=== PATIENT | male | born 1990 ===

== ENCOUNTER → 2023-04-23 08:57 | Outpatient (BNVA) | payer OTHER, SELFPAY | PROVIDERS: Visit Provider Physician Assistant Surgical ==

== ENCOUNTER 2023-05-21 15:10 | Outpatient (AMB) | payer OTHER, SELFPAY ==
--- NOTE | 2023-05-21 15:48 | A.OFFVIS_ITS ---
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 BMI 46.8 HPI Details Start time: 3.34pm, End time: 4.19pm ?I spent 40 minutes speaking with the patient on the phone plus an additional 5 minutes reviewing and updating records for a total of 45 minutes HPI Comments History of Present Illness Details Previous weight loss efforts: exercise Wakes up: 6am, Sleeps: 10pm Breakfast: 8am (Bagel, oatmeal) Lunch: skips Dinner: 7pm (burger, pizza) Snacks: 3pm (salami or mozarella with crackers) Exercise: none Fluids: Coffee: 2/week, tea: none, soda: Lesli Regular, juice: Cranberry juice, ETOH:none PFSH Medical History (Updated 05/21/23 @ 15:50 by Tristan Santiago MD) Sleep apnea treated with continuous positive airway pressure (CPAP) Morbid obesity Surgical History (Updated 04/23/23 @ 10:11 by Holly Wesley CMA) History of surgery on left wrist Family History (Updated 04/23/23 @ 09:27 by Holly Wesley CMA) Paternal Grandmother Breast cancer Social History (Updated 04/23/23 @ 09:28 by Holly Wesley CMA) Alcohol intake: never Patient Tobacco Use Status: Never used Tobacco Current occupational status: employed 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 Plan for lap sleeve gastrectomy. If diaphragmatic or ventral hernias are present at time of surgery, these will be repaired laparoscopically as well. Risks and complications were discussed in detail including possible conversion to an open procedure, anastomotic leak, bleeding requiring transfusion, small bowel obstruction, , DVT and pulmonary embolism, cardiac, or pulmonary complications, as assisted complications such as anastomotic ulcer, insufficient weight loss and vitamin deficiencies. I emphasized the importance of close follow-up, adherence to instructions and good communication. 2. Nutritional counseling. Start with 2 CELEBRATE REBUILD protein (buy at [facility] [employer]) shakes (ONE scoop EACH in 8oz low fat unsweetened almond milk each) at 7am-9am and 10am-12pm, 2 protein bars (CELEBRATE protein bars, buy at [facility] [employer]) at 1pm-3pm and 4pm-6pm, dinner at 7pm (12 forks of protein and 12 forks of salad/vegetables). If you feel hungry after your dinner, you can have one more protein bar at 8pm-10pm. So you do 2 protein shakes, 2-3 protein bars and one meal per day. Meal to include lean meat (beef, fish, pork, turkey, chicken), or malagasy yogurt, or egg whites, or beans with a salad with olive oil and fruits (berries, pears, apples, kiwi). Avoid salt, breads, potatoes, rice, pasta, desserts. 3. Each shake would be drunk slowly, like coffee in a period of 2 hours. 4. Cut each bar in 4 pieces and eat each piece in 30min ?to make each bar last 2 hours. 5. I emphasized the importance of measuring accurately the food portion and measure it when serving the food in plate 6. The meal portions include 12 full-size forks of meat and 12 full-size forks of salad. You always eat the meat portion but you can replace up to 6 forks for salad/vegetables with rice, potatoes or pasta, or a fruit ?if you like. The less you do it the better weight loss will be. 7. One full-size fork is what it can be scooped on the fork without falling as neha and not what can be bit with the fork. Use regular forks like those you find in a typical restaurant. 8.? Please send me weight measurements as soon as possible and then once a week. Always include your diet and exercise plan. 9. The best choice would be to purchase a stationary bike, elliptical or treadmill at home that can track calories. Let me know if you do so I can give you an exercise plan. 10.?Goal is to lose at least 1.5-2lbs per week 11. Goal to lose 10% of your weight before surgery, which is about 30lbs. Ultimate weight goal: 273lbs before surgery 12. Please follow the diet plan exactly without any change. If you don't like something about the plan or you feel hungry you need to communicate with me so I can help you revise the plan. You should not change the plan yourself. Orders: Orders H Pylori Breath Test Today E66.01 - Morbid (severe) obesity due to excess calories, G47.30 - Sleep apnea, unspecified Complete Blood Count Auto Diff Today E66.01 - Morbid (severe) obesity due to excess calories, G47.30 - Sleep apnea, unspecified C Reactive Protein Today E66.01 - Morbid (severe) obesity due to excess calories, G47.30 - Sleep apnea, unspecified Vitamin A Today E66.01 - Morbid (severe) obesity due to excess calories, G47.30 - Sleep apnea, unspecified Vitamin D 25-OH Total Today E66.01 - Morbid (severe) obesity due to excess calories, G47.30 - Sleep apnea, unspecified US abdomen comp w elastography Today E66.01 - Morbid (severe) obesity due to excess calories, G47.30 - Sleep apnea, unspecified ECG 12 lead EKG Today E66.01 - Morbid (severe) obesity due to excess calories, G47.30 - Sleep apnea, unspecified Insulin Today E66.01 - Morbid (severe) obesity due to excess calories, G47.30 - Sleep apnea, unspecified Hemoglobin A1c Today E66.01 - Morbid (severe) obesity due to excess calories, G47.30 - Sleep apnea, unspecified Lipid Panel Today E66.01 - Morbid (severe) obesity due to excess calories, G47.30 - Sleep apnea, unspecified IRON PROFILE Today E66.01 - Morbid (severe) obesity due to excess calories, G47.30 - Sleep apnea, unspecified Comprehensive Met. Panel Today E66.01 - Morbid (severe) obesity due to excess calories, G47.30 - Sleep apnea, unspecified Vitamin B12 and Folate Today E66.01 - Morbid (severe) obesity due to excess calories, G47.30 - Sleep apnea, unspecified Zinc Today E66.01 - Morbid (severe) obesity due to excess calories, G47.30 - Sleep apnea, unspecified Vitamin B1 Today E66.01 - Morbid (severe) obesity due to excess calories, G47.30 - Sleep apnea, unspecified TSH reflex Free T4 Today E66.01 - Morbid (severe) obesity due to excess calories, G47.30 - Sleep apnea, unspecified Ferritin Today E66.01 - Morbid (severe) obesity due to excess calories, G47.30 - Sleep apnea, unspecified XR chest 2V Today E66.01 - Morbid (severe) obesity due to excess calories, G47.30 - Sleep apnea, unspecified FL upper GI w air Today E66.01 - Morbid (severe) obesity due to excess calories, G47.30 - Sleep apnea, unspecified Referrals Behavioral Health Referral E66.01 - Morbid (severe) obesity due to excess calories, G47.30 - Sleep apnea, unspecified Nutrition/Dietitian Referral E66.01 - Morbid (severe) obesity due to excess calories, G47.30 - Sleep apnea, unspecified Telehealth Telehealth Location of provider rendering services: practice address Location of patient: address on file Patient Identification confirmed using: Name, : Yes Telehealth method: voice only Patient verbally consented to treatment: Yes Patient verbally consented to billing insurance company: Yes Patient informed of any privacy concerns related to visit: Yes Minutes spent on Phone/Video with Pt.: 45 Coding Level of Care Code Tele [facility] Pt Level 4 (35750) Diagnoses Morbid obesity E66.01 Time Spent (min) 45
[2023-05-21 15:56] VITALS: BMI 46.8
== END 2023-05-21 16:20 | disposition home or self-care (01) ==
LOC: HO.HBS 15:10
PROVIDERS: PCP Internal Medicine; Visit Provider Surgery
DX: E66.01 Morbid (severe) obesity due to excess calories (principal)
CPT/HCPCS: 99204

== ENCOUNTER → 2023-05-21 15:10 | Outpatient (BNVA) | payer OTHER, SELFPAY | PROVIDERS: PCP Internal Medicine; Visit Provider Surgery ==

== ENCOUNTER 2023-05-31 12:15 | Outpatient (REF) | payer OTHER, SELFPAY ==
--- NOTE | ~2023-05-31 | XR_ITS ---
EXAMINATION: XR CHEST CLINICAL INFORMATION: Morbid obesity, severe obesity due to excess calories. Patient states chest pain. COMPARISON: None available. TECHNIQUE: 3 views of the chest. FINDINGS: Lung volumes are low. There is no gross pneumothorax. Heart size is normal. No pleural effusion. 4 mm nodule overlying the posterior aspect of the left ninth rib. CT scan of the chest should be considered for further evaluation. Slight leftward curvature of the thoracolumbar spine. Mild loss of height of several lower thoracic vertebral bodies of indeterminate age and etiology. Mild degenerative changes in the thoracic spine. XR/XR chest 2V IMPRESSION: 1. A 4 mm nodule overlying the posterior aspect of the left ninth rib. CT scan of the chest should be considered for further evaluation. 2. Mild loss of height of several lower thoracic vertebral bodies of indeterminate age and etiology.
[2023-05-31 12:38] LABS: MANUAL DIFF FLAG NO
[2023-05-31 13:09] LABS: Basophils Absolute Auto 0.1 X10*3/uL (0.0-0.2); Basophils Percent Auto 0.6 % (0-2); Eosinophils Absolute Auto 0.2 X10*3/uL (0.0-0.4); Eosinophils Percent Auto 1.9 % (0-4); Hematocrit 43.8 % (42.0-52.0); Hemoglobin 15.9 g/dl (14.0-18.0); Imm Gran Abs Auto 0.03 X10*3/uL (0.00-0.03); Imm Gran Pct Auto 0.4 % (0.0-0.4); Lymphocytes Absolute Auto 2.3 X10*3/uL (1.2-4.9); Lymphocytes Percent Auto 27.7 % (20-40); Mean Corpuscular HGB Conc 36.3 g/dl (31.0-36.0); Mean Corpuscular Hemoglobin 30.1 pg (27.0-33.0); Mean Platelet Volume 10.9 fL (9.4-12.4); Monocytes Absolute Auto 0.5 X10*3/uL (0.1-1.2); Monocytes Percent Auto 5.9 % (2-11); Neutrophils Absolute Auto 5.3 x10*3/uL (2.0-8.3); Neutrophils Percent Auto 63.5 % (45-73); Platelet Count 258 X10*3/uL (160-400); Red Blood Count 5.28 X10*6/uL (4.60-5.80); Red Cell Distribution Width 12.1 % (11.0-16.0); White Blood Count 8.4 X10*3/uL (4.8-10.8)
[2023-05-31 13:46] LABS: Estimated Average Glucose 100 mg/dL; Hemoglobin A1c % 5.1 % (<6.0)
[2023-05-31 13:48] LABS: Alanine Aminotransferase 44 U/L (0-40); Albumin Level 4.5 g/dL (3.5-5.0); Alkaline Phosphatase 64 U/L (39-117); Anion Gap 12 (12-20); Aspartate Amino Transferase 29 U/L (5-37); Bilirubin Total 0.8 mg/dL (0.0-1.0); Blood Urea Nitrogen 13 mg/dL (9-16); Calcium 9.4 mg/dL (8.4-10.2); Carbon Dioxide 24 mmol/L (22-29); Chloride 108 mmol/L (96-108); Cholesterol 167 mg/dL (<200); Estimated Glomerular Filt Rate > 60; Glucose Random 86 mg/dL (60-115); HDL Cholesterol 42 mg/dL (>40); Iron 95 mcg/dL (45-160); LDL Cholesterol Calculated 108 mg/dL (<100); Percent Iron Saturation 39 % (15-50); Potassium 3.7 mmol/L (3.3-5.1); Sodium 140 mmol/L (135-145); Total Iron Binding Capacity 242 mcg/dL (228-428); Total Protein 7.5 g/dL (6.5-8.0); Triglycerides 88 mg/dL (<150); Unsaturated Iron Binding 147 ug/dL
[2023-05-31 14:05] LABS: Ferritin 364 ng/mL (20-250); Insulin 26 uU/mL (2-29); TSH reflex Free T4 1.48 uIU/mL (0.32-4.0); Vitamin D 25-OH Total 12.5 ng/mL (>30)
[2023-05-31 15:39] LABS: Folate 8.3 ng/mL (> or = 4.0); Vitamin B12 463 pg/mL (200-900)
[2023-06-03 01:38] LABS: Zinc 87 mcg/dL (60-130)
[2023-06-03 16:48] LABS: Vitamin A 27 mcg/dL (38-98)
[2023-06-04 17:33] LABS: Vitamin B1 13 nmol/L (8-30)
== END 2023-05-31 12:16 | disposition home or self-care (01) ==
LOC: HO.LAB 12:15
PROVIDERS: Visit Provider Surgery
DX: E66.01 Morbid (severe) obesity due to excess calories (principal); G47.30 Sleep apnea, unspecified
CPT/HCPCS: 36415; 71046; 80053; 80061; 82306; 82607; 82728; 82746; 83036; 83525; 83540; 84425; 84443; 84590; 84630; 85025; 86140

== ENCOUNTER → 2023-06-07 08:21 | Outpatient (REF) | payer OTHER, SELFPAY ==
--- NOTE | 2023-06-07 08:23 | ECG_ITS ---
Test Reason : OBESITY Blood Pressure : / mmHG Vent. Rate : 077 BPM Atrial Rate : 077 BPM P-R Int : 174 ms QRS Dur : 096 ms QT Int : 378 ms P-R-T Axes : 046 039 030 degrees QTc Int : 427 ms Normal sinus rhythm Nonspecific ST and T wave abnormality Abnormal ECG No previous ECGs available Referred By: Tristan Satniago Electronically Signed By:JIMY GAMEZ MD
== END ==
LOC: HO.CARD 08:21
PROVIDERS: Visit Provider Surgery
DX: E66.01 Morbid (severe) obesity due to excess calories (principal); G47.30 Sleep apnea, unspecified
CPT/HCPCS: 93005

== ENCOUNTER → 2023-06-07 08:23 | Outpatient (BNV) | payer OTHER, SELFPAY | PROVIDERS: Visit Provider Internal Medicine Cardiovascular Disease | DX: E66.01 Morbid (severe) obesity due to excess calories (principal); R94.31 Abnormal electrocardiogram [ECG] [EKG] | CPT/HCPCS: 93010 ==

== ENCOUNTER 2023-06-11 08:29 | Outpatient (REF) | payer OTHER, SELFPAY ==
--- NOTE | ~2023-06-11 | US_ITS ---
EXAMINATION: US COMPLETE ABDOMEN WITH LIVER ELASTOGRAPHY CLINICAL INFORMATION: Morbid obesity. COMPARISON: None available. TECHNIQUE: Real-time imaging of the abdominal viscera. Noninvasive ultrasound liver fibrosis assessment is performed using Landry ElastPQ point quantification shear wave elastography (2D-SWE) with a C5-2 MHz transducer. Multiple elastography samples are obtained. FINDINGS: PANCREAS: Normal. The visualized pancreatic head and proximal body are normal in appearance. The remainder of the pancreas is obscured from visualization by the overlying bowel gas. ABDOMINAL AORTA: The proximal, middle, and distal aortic segments are normal in caliber. INFERIOR VENA CAVA: Visualized portions are normal. LIVER: The liver demonstrates normal size, contour and increased echogenicity, with pericholecystic sparing. No focal lesion or intrahepatic biliary duct dilatation. The right lobe measures 16.0 cm in length. The left lobe measures 11.6 cm in length. Portal flow is towards the liver (hepatopetal). Shear wave liver elastography median stiffness is 1.78 m/s (reference: normal median stiffness is 1.3 m/s or less). IQR/median stiffness to assess sampling precision is 0.17 (reference: good quality data set is IQR/median stiffness of 0.15 or less). GALLBLADDER: Normal. The gallbladder is physiologically distended without evidence of stones, sludge, polyps, wall thickening or pericholecystic fluid. COMMON BILE DUCT: Imaging limited. Normal in caliber measuring 0.3 cm in diameter. RIGHT KIDNEY: Normal. No hydronephrosis. No renal calculi or focal parenchymal lesions. The kidney measures 11.0 cm in maximum dimension. LEFT KIDNEY: Normal. No hydronephrosis. No renal calculi or focal parenchymal lesions. The kidney measures 11.7 cm in maximum dimension. SPLEEN: Normal. The spleen measures 11.4 cm in maximum dimension. FREE FLUID: None. US/US abdomen comp w elastography IMPRESSION: 1. There is generalized increase in hepatic echotexture, consistent with fatty infiltration or hepatocellular disease. Please correlate clinically. Characteristic pericholecystic sparing favors fatty infiltration. No focal hepatic mass or intrahepatic biliary dilatation is seen. 2. Liver elastography: Measurements are suggestive of compensated advanced chronic liver disease but need further test for confirmation. 3. Technically limited ultrasound examination, in particular of the pancreas and common bile duct. REFERENCE: Society of Radiologists in Ultrasound Liver Stiffness Thresholds (2020): LIVER STIFFNESS THRESHOLDS: *Liver Stiffness equal or less than 1.3 m/s: High probability of being normal. *Liver Stiffness less than 1.7 m/s: In the absence of other known clinical signs, rules out compensated advanced chronic liver disease. *Liver Stiffness 1.7-2.1 m/s: Suggestive of compensated advanced chronic liver disease but need further test for confirmation. *Liver Stiffness over 2.1 m/s: Rules in compensated advanced chronic liver disease. *Liver Stiffness over 2.4 m/s: Suggestive of clinically significant portal hypertension. QUALITY OF DATA SET: *IQR/Median value equal or less than 0.15 implies a quality data set. *IQR/Median value over 0.15 implies a poor quality data set. SIGNIFICANT CHANGE FROM PRIOR EXAM: Significant change if liver stiffness measurement is 10% or greater from prior exam. OTHER CONSIDERATIONS: The stage of liver fibrosis may be overestimated in the setting of acute hepatitis, liver inflammation, elevated liver function tests, hepatic vascular congestion, obstructive cholestasis, non-fasting state, and infiltrative diseases such as amyloidosis and lymphoma. In some patients with NAFLD, the liver stiffness thresholds for compensated advanced chronic liver disease may be lower. In causes other than viral hepatitis and NAFLD, liver stiffness thresholds are not well established.
== END 2023-06-11 08:30 | disposition home or self-care (01) ==
LOC: HO.US 08:29
PROVIDERS: PCP Internal Medicine; Visit Provider Surgery
DX: E66.01 Morbid (severe) obesity due to excess calories (principal); G47.30 Sleep apnea, unspecified
CPT/HCPCS: 76700; 76981

== ENCOUNTER → 2023-06-16 09:00 | Outpatient (BNVA) | payer OTHER, SELFPAY | PROVIDERS: Visit Provider Counselor Mental Health ==

== ENCOUNTER → 2023-06-16 09:00 | Outpatient (AMB) | payer OTHER, SELFPAY ==
--- NOTE | 2023-06-16 09:10 | A.OFFWM_ITS ---
Intake Intake Visit Reasons: VIDEO BH Intake Allergies No Known Allergies Allergy (Verified 05/21/23 15:48) [facility] Medical History (Updated 06/09/23 @ 15:48 by Tristan Santiago MD) Sleep apnea treated with continuous positive airway pressure (CPAP) Morbid obesity Surgical History (Updated 04/23/23 @ 10:11 by Holly Wesley CMA) History of surgery on left wrist Family History (Updated 04/23/23 @ 09:27 by Holly Wesley CMA) Paternal Grandmother Breast cancer Social History (Updated 04/23/23 @ 09:28 by Holly Wesley CMA) Alcohol intake: never Patient Tobacco Use Status: Never used Tobacco Current occupational status: employed 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 PT denied any history of mental health treatment and or past hospitalization/crisis for behavioral health. Denies any safety concerns around SI and/or self-other harm, also there is no history of substance use reported. There is also no evidence for stress/emotional-eating, and scores from BES suggest minimal risk for binge eating behavior. PHQ- scores also showed no active symptoms/concerns with depression. Mental status exam is withing normal limits, suggesting person's functioning is not impaired. At this time patient is cleared from the behavioral health standpoint. Presenting Concerns Referral Source -PT knew about the program because of he r mother's friend who had a family member who had bariatric surgery. -WMP- provider. PT sees Dr. Hughes Reason for referral Completion of behavioral health assessment as part of process for weight-loss surgery. Precipitating Event Obesity, medical issues such as sleep apnea, and desires to be more active as a father. Living Situation Current Living Situation Relative's/Guardian's Sin and Rent At risk of losing current housing? No Satisfied with current living situation? Yes Comments PT lives at his mother's home. Food/Weight/Diet Expectations of change PT started program at beginning of May and was at 303Lbs. His goal is to be at least 200Lbs but ultimately he wants to be and feel healthy. History/Relationship with food Pt reports he likes food a lot. 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 Lately, He has been able to identify when his cravings due to stress He was also skipping meals and had 1 meal a day only. EXAMPLE OF MEALS BEFORE STARTING THE PROGRAM: - Breakfast: skip - Lunch: fast food around 12 or 1 pm (ta cos, a hot dog, hamburger) - Dinner: in between 8 and 10 pm. Fast f ood (subway, [email or web address], [employer]) - Snacks: any package foods. Due to his job, he was on the road for consecutive days, so he was only eating at home 1 week every 7 weeks. In the past while having his previous job he had little or no appetite in the morning and felt very hungry in the evening, often overeating between dinner and when he went to sleep. History/Relationship with weight As a child, he was always chunky but never obese. He was always very active until he finished HS. After finishing HS he gained weight and was able to lose by going to the gym. On his 20's he was around 175 lbs. 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 Max weight was 305Lbs when started the program. History/Relationship with dieting Has mostly tried exercise and changes in eating choices. Binge Eating Do you frequently eat large amounts of food in short periods of time, not feeling physically hungry? No Do you feel out of control when you eat a large amount of food in a short period of time? No Do you eat large amounts of food rapidly and typically alone? No Night Eating Do you wake up at least once during the night to eat? No If you wake up in the night, do you find that it is necessary to eat something in order to fall back asleep? No Do you have little or no appetite in the morning and feel very hungry in the evening, often overeating between dinner and when you go to bed? Yes Social History Family history and relationship Single. His parents are alive but since he was 3 years old. He has 4 siblings. 2 living in the area and the other 2 in other states. PT reports healthy family relationships. 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 Developmental history and status None reported. Currently WNL. Social support Immediate family, especially mom and grandfather. Is very close to 2 siblings and has 2 good friends. His mom had bariatric surgery 16 years ago and all of his family supports him with bariatric surgery. Community support None reported. Temple/Spirituality None. Cultural/Ethnic information Born and raised in [place]. Living in [place] ago but [place] the [place]. Legal Involvement and History Current or historical involvement with the legal system? None reported. Education Highest grade completed HS and [employer] certificate. Preferred learning style Learn by doing and Visual Currently enrolled in educational program? No Interested in further educational program? No Educational Interests/Skills [employer]. 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 Employment Employment Status Unemployed (2 weeks ago.) Wants help to find employment? No Meaningful activities Family activities, watching Tv, videogames, travel. Financial Situation Describe current financial situation Comfortable Financial assistance? None Service Service? No Mental Health and Addiction Treatment Current/Past substance abuse? No Comments He doesn't drink in general due to the nature of his work. Years ago he was most a social drinker and used to have some drinks on weekends. Current/Past addictive behavior concerns? No Psychiatric history Never in Counseling. Medical and Physical Health Summary Additional Medical History not covered in history None reported Sexual History concerns None reported. Physical exam in the last year? Yes Pain Screening Current pain? No Pain in the last few months? No Comments PT reports he deals with lower back issues as he has a mild case of curved back. When working seated for long periods of time he has some pain but is manageable. Also, at times has some knee pain but is manageable, he feels is due to his weight. Medications Is the patient compliant with medications? Not applicable Does the patient have Munoz Guardian in place? Not applicable Does the patient use complimentary health approaches? No Trauma/Abuse History History of trauma? No Questionnaires PHQ-9 Over the last 2 weeks, how often have you been bothered by any of the following problems? 1. Little interest or pleasure in doing things: not at all 2. Feeling down, depressed, or hopeless: not at all 3. Trouble falling or staying asleep, or sleeping too much: several days 4. Feeling tired or having little energy: not at all 5. Poor appetite or overeating: not at all 6. Feeling bad about yourself - or that you are a failure or have let yourself or your family down: not at all 7. Trouble concentrating on things, such as reading the newspaper or watching television: not at all 8. Moving or speaking so slowly that other people could have noticed. Or the opposite - being so fidgety or restless that you have been moving around a lot more than usual: not at all 9. Thoughts that you would be better off or of hurting yourself in some way: not at all Total score: 1 Depression Screening Interpretation: Negative (PT scored 10 when administered at his admission to [facility] in May. ) Depression Screening Done: Yes 98906 - PHQ-9 Billing: Yes Source: Developed by Drs. Andrew Vasquez, Tina Hurt, Gustavo Handy and colleagues, with an educational jonah from [employer]. Binge Eating Scale Group 1 A. I don't feel self-conscious about my wt. or body size when I'm with others. B. I feel concerned about how I look to others, but it normally does not make me fell disappointed with myself C. I do get self-conscious about my appearance and wt. which makes me feel disappointed in myself. D. I feel very self-conscious about my wt. and frequently I feel intense shame and disgust for myself. I try to avoid social contacts because of my self- consciousness. Response Group 1: C Group 2 A. I don't have any difficulty eating slowly in the proper manner. B. Although I seem to gobble down foods, I don't end up feeling stuffed because of eating to much. C. At times, I tend to eat quickly and then, I feel uncomfortably full afterwards. D. I have the habit of bolting down my food, without really chewing it. When this happens I usually feel uncomfortably stuffed because I've eaten to much. Response Group 2: C Group 3 A. I feel capable to control my eating urges when I want to. B. I feel like I have failed to control my eating more than the average person. C. I feel utterly helpless when it comes to feeling in control of my eating urges. D. Because I feel so helpless about controlling my eating I have become very desperate about trying to get control. Response Group 3: B Group 4 A. I don't have the habit of eating when I'm bored. B. I sometimes eat when I'm bored, but often I'm able to get busy and get my mind off food. C. I have a regular habit of eating when I'm bored, but occasionally, I can use some other activity to get my mind off eating. D. I have a strong habit of eating when I'm bored. Nothing seems to help me breath the habit. Response Group 4: A Group 5 A. I'm usually physically hungry when I eat something. B. Occasionally, I eat something on impulse even though I really am not hungry. C. I have the regular habit of eating foods, that I might not really enjoy, to satisfy a hungry feeling even though physically, I don't need the food. D. Although I'm not physically hungry, I get a hungry feeling in my mouth that only seems to be satisfied when I eat a food, like sandwich, that fills my mouth. Sometimes, when I eat the food to satisfy my mouth hunger, I then spit the food out so I won't gain weight. Response Group 5: A Group 6 A. I don't feel any guilt or self-hate after I overeat. B. After I overeat, occasionally I feel guilt or self-hate. C. Almost all the time I experience strong guilt or self-hate after I overeat. Response Group 6: C Group 7 A. I don't lose total control of my eating when dieting even after periods when I overeat. B. Sometimes when I eat a forbidden food on a diet, I feel like I blew it and eat even more. C. Frequently, I have the habit of saying to myself, I've blown it now, why not go all the way, when I overeat on a diet. When that happens I eat more. D. I have a regular habit of starting a strict diets for myself but I break the diets by going on an eating binge. My life seems to be either a feast or famine. Response Group 7: A Group 8 A. I rarely eat so much food that I feel uncomfortably stuffed afterwards. B. Usually about once a month, I each such a quantity of food, I end up feeling very stuffed. C. I have regular periods during the month when I eat large amounts of food, either at mealtime or at snacks. D. I eat so much food that I regularly feel quite uncomfortable after eating and sometimes a bit nauseous. Response Group 8: A Group 9 A. My level of calorie intake does not go up very high or go down very low on a regular basis. B. Sometimes after I overeat, I will try to reduce my caloric intake to almost nothing to compensate for the excess calories I've eaten. C. I have a regular habit of overeating during the night. It seems that my routine is not to be hungry in the morning but overeat in the evening. D. In my adult years, I have had week-long periods where I practically starve myself. This follows periods when I overeat. It seems I live a life of either feast or famine. Response Group 9: D Group 10 A. I usually am able to stop eating when I want to. I know when enough is enough. B. Every so often, I experience a compulsion to eat which I can't seem to control. C. Frequently, I experience strong urges to eat which I seem unable to control, but at other times I can control my eating urges. D. I feel incapable of controlling urges to eat. I have a fear of not being able to stop eating voluntarily. Response Group 10: A Group 11 A. I don't have any problem stopping eating when I feel full. B. I usually can stop eating when I feel full but occasionally overeat leaving me feeling uncomfortably stuffed. C. I have a problem stopping eating once I start and usually I feel uncomfortably stuffed after I eat a meal. D. Because I have a problem not being able to stop eating when I want, I sometimes have to induce vomiting to relieve my stuffed feeling. Response Group 11: B Group 12 A. I seem to eat just as much when I'm with others, Family social gatherings as when I'm by myself. B. Sometimes, when I'm with other persons, I don't eat as much as I want to eat because I'm self-conscious about my eating. C. Frequently, I eat only a small amount of food when others are present, because I'm very embarrassed about my eating. D. I feel so ashamed about overeating that I pick times to overeat when I know no one will see me. I feel like a closet eater. Response Group 12: A Group 13 A. I eat three meals a day with only an occasional between meal snack. B. I eat 3 meals a day, but I also normally snack between meals. C. When I am snacking heavily, I get in the habit of skipping regular meals. D. There are regular periods when I seem to be continually eating, with no planned meals. Response Group 13: A Group 14 A. I don't think much about trying to control unwanted eating urges. B. At least some of the time, I feel my thoughts are pre-occupied with trying to control my eating urges. C. I feel that frequently I spend much time thinking about how much I ate or about trying not to eat anymore. D. It seems to me that most of my waking hours are pre-occupied by thoughts about eating or not eating. I feel like I'm constantly struggling not to eat. Response Group 14: B Group 15 A. I don't think about food a great deal. B. I have strong craving for food but they last only for brief periods of time. C. I have days when I can't seem to think about anything else but food. D. Most of my days seem to be pre-occupied with thoughts about food. I feel like I live to eat. Response Group 15: A Group 16 A. I usually know whether or not I'm physically hungry. I take the right portion of food to satisfy me. B. Occasionally, I feel uncertain about knowing whether or not I'm physically hungry. A these times it's hard to know how much food I should take to satisfy me. C. Even though I might know how many calories I should eat, I don't have any idea what is a normal amount of food for me. Response Group 16: A Binge Eating Score: 12 Score less than 17 Minimal Risk Score between 18-26 Moderate Risk Score between 27-46 High Risk Assessment & Plan Assessment & Plan (1) Morbid obesity: Code(s): E66.01 - Morbid (severe) obesity due to excess calories (2) Adjustment disorder, unspecified: Code(s): F43.20 - Adjustment disorder, unspecified Plan * The patient has been cleared from a behavioral health standpoint and appears to be a great candidate for?weight?management program (WMP).? * During our discussion, the patient shared their doubts about moving forward with bariatric surgery. The therapist advised the patient to share their medical questions and concerns with Dr. Hughes * ?The patient will need to complete his nutrition classes before the next appointment with Dr. Hughes? * There is no need for further follow-up for behavioral health, but a follow-up appointment 4-8 weeks post-surgery is recommended. Telehealth Telehealth Telehealth Platform: [facility] Location of provider rendering services: other Location of patient: address on file Patient Identification confirmed using: Name, : Yes Telehealth method: voice only Patient verbally consented to treatment: Yes Patient verbally consented to billing insurance company: Yes Patient informed of any privacy concerns related to visit: No Minutes spent on Phone/Video with Pt.: 90 Coding Level of Care Code New Pt Tele Psy Diag Eval (85565) Patient Type New Diagnoses Morbid obesity E66.01 Adjustment disorder, unspecified F43.20 Time Spent (min) 90
== END ==
PROVIDERS: Visit Provider Counselor Mental Health
DX: E66.01 Morbid (severe) obesity due to excess calories (principal); F43.20 Adjustment disorder, unspecified
CPT/HCPCS: 90791

== ENCOUNTER → 2023-06-18 07:55 | Outpatient (REF) | payer OTHER, SELFPAY ==
--- NOTE | 2023-06-18 07:57 | CA_ITS ---
Acquisition Time: 2023-06-18 08:05:47 Total Exercise Time: 00:08:59 Test Indications: Abnormal ECG Medications: NONE Protocol: JAY Max HR: 166 BPM 88% of Pred: 187 BPM Max BP: 170/030 mmHG Max Work Load: 10.1 METS Exercise stress test exercose 8 min 59 sec of Jay protocol achieivng 87% MPHR and 10.1 METS, without anginal symptoms, without arrhythmias, with normotensive with lowest diastolic blood pressure 30 mmHg, with T wave inversion in lead V6 reviewed with Dr. Katz. Referred By: Tristan Santiago Overread By: Nidia Pak
== END ==
LOC: HO.CARD 07:55
PROVIDERS: Visit Provider Surgery
DX: R94.31 Abnormal electrocardiogram [ECG] [EKG] (principal)
CPT/HCPCS: 93017

== ENCOUNTER → 2023-06-18 07:57 | Outpatient (BNV) | payer OTHER, SELFPAY | PROVIDERS: Visit Provider Nurse Practitioner | DX: R94.31 Abnormal electrocardiogram [ECG] [EKG] (principal) | CPT/HCPCS: 93016; 93018 ==

== ENCOUNTER 2023-06-23 07:57 | Day surgery (SDC) | payer OTHER, SELFPAY ==
[2023-06-21 14:25] VITALS: BMI 46.6
--- NOTE | 2023-06-21 14:46 | HO.ANESPROP2 ---
Documented by User: Thea Cox NP 06/21/23 14:47 HPI - Anesthesia Eval Consult details Narrative: 33yo M for Upper Endoscopy PMFSH Active Problems Active Problems: All Active Problems Nodule of left lung (Acute) Abnormal EKG (Acute) Vitamin A deficiency (Acute) Vitamin B12 deficiency (Acute) Vitamin D deficiency (Acute) Sleep apnea treated with continuous positive airway pressure (CPAP) (Acute) Morbid obesity (Acute) Past Medical History Medical History Sleep apnea treated with continuous positive airway pressure (CPAP) Morbid obesity Family History Family History Paternal Grandmother Breast cancer Surgical History Surgical History History of surgery on left wrist Social History Social History Alcohol intake: never Patient Tobacco Use Status: Never used Tobacco Advance Directives: No (unknown) Advance Directives Information Provided: Yes Advance Directives on File: No Current occupational status: employed 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 [employer] Allergies Allergy/AdvReac Type Severity Reaction Status Date / Time No Known Allergies Allergy Verified 06/23/23 08:35 Exam Height,Weight and Vital Signs: Height 5 ft 7.5 in Weight 136.985 kg Assessment and Plan Assessment Anesthesia Assessment: Chart Reviewed Documented by User: Subha Hunter MD 06/23/23 09:00 PMFSH Past Medical History Medical History Sleep apnea treated with continuous positive airway pressure (CPAP) Morbid obesity Family History Family History Paternal Grandmother Breast cancer Surgical History Surgical History History of surgery on left wrist History of Problems with Anesthesia: No Social History Social History Alcohol intake: never Patient Tobacco Use Status: Never used Tobacco Advance Directives: No (unknown) Advance Directives Information Provided: Yes Advance Directives on File: No Current occupational status: employed 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 Meds Allergies Allergy/AdvReac Type Severity Reaction Status Date / Time No Known Allergies Allergy Verified 06/23/23 08:35 Exam Airway Mallampati Class: III TM Dist: >3cm Neck ROM: Full Loose/Missing/Broken Teeth: No Heart: RRR Lungs: CTA Assessment and Plan Assessment Anesthesia Assessment: Anesthesia Plan Discussed Final Anesthetic Review History of Problems with Anesthesia: No NPO: Yes ASA Class: III Final Preanesthetic Review: Meds/Allgs Chart Reviewed, Consent Obtained/Reviewed and Anes Risks/Benef Reviewed Patient Risk: Intermediate Procedure Risk: Intermediate Anesthetic Plan Anesthetic Plan: MAC: Disposition: Standard PACU
[2023-06-23 08:42] VITALS: BP 126/75; PULSE 78; RESP 16; TEMP 36.3; O2SAT 97
[2023-06-23] MEDS: Lactated Ringers 1,000 ML 80 ML IVCONT (08:47)
--- NOTE | 2023-06-23 08:48 | MHC.SHP ---
Pre-Procedural Eval Section A - 24 Hr Update-Section A only Date of Service: 06/23/23 The patient is an INPATIENT: No The patient has been examined within 24 hours of the surgical procedure. The History & Physical has been completed within 30 days and I have reviewed it.: Yes Section B - Complete if H&P > 30 days Chief Complaint: Obesity, unspecified Details of Present Illness: GERD Relevant Family History (Specify if Yes): No Relevant Social History: None Present Medications: None Medical History: No relevant PMH History of Previous Operations: No relevant previous surgery Allergies: Allergies Allergy/AdvReac Type Severity Reaction Status Date / Time No Known Allergies Allergy Verified 06/23/23 08:35 Review of Systems Sugical H&P ROS: Negative: Constitution, Cardiovascular, Respiratory, Neurological, Psychiatric, Hem-Onc, Allergic/Immunologic, Gastrointestinal, Genitourinary, Musculoskeletal, Integumentary, Endocrine and Eyes/Ears/Nose/Throat Exam Surgical H&P Exam: Normal: HEENT, Normal: Heart, Normal: Lungs, Normal: Extremities, Normal: Abdomen, Normal: Skin and Normal: Neurological Plan Diagnosis/Plan: Unchanged (EGD to assess etiology of GERD. Risks of bleeding and perforation were discussed with the patient and he is in agreement with the plan.) I have reviewed the history and physical and performed a pertinent physical examination on my patient. No changes have occurred unless specified. Time Spent With Patient Time: Total time managing care of this patient today ____ minutes.
--- NOTE | 2023-06-23 08:55 | P.BOP_ITS ---
Brief Operative Note Date of Service: 06/23/23 Pre-op diagnosis: GERD Post-op diagnosis: same Procedure: PROCEDURE DATE: 05/22/2021 PREOPERATIVE DIAGNOSIS: GERD POSTOPERATIVE DIAGNOSIS: ?Same as above. 1) normal endoscopy PROCEDURE: [id number] with biopsies Surgeon: Tino Santiago M.D.. Ph.D. Curriculum And Instruction Director: None ? Anesthesia: IV sedation Estimated blood loss: ?Minimal FINDINGS AND PROCEDURE: ? OPERATIVE INDICATIONS: ?The patient is a 33 year old male known to me who is interested in bariatric surgery. The patient has GERD. Based on this information I recommended an upper endoscopy to evaluate the patient's symptoms. Risks and complications of the surgery were discussed with the patient in advance particularly the possibility of perforation or bleeding that may require surgical intervention. The patient understood the risks and was in agreement with the plan. ? PROCEDURE: After informed consent was obtained by the patient, the patient was ?transferred to the Operating Room and was placed in the supine position.? After successful induction of IV sedation, a mouth block was inserted and the patient was placed in the left lateral decubitus position. An upper endoscopy was performed next, the oropharynx and esophagus appeared within the normal limits. There was no hiatal hernia. The z-line was smooth. Two biopsies were obtained from the distal esophagus 2-3 cm proximal to the GE junction and two additional biopsies from the GE junction. The stomach was entered and it appeared to be of normal size. There was no gastritis. There was no stricture or ulcer. A biopsy was obtained from the gastric fundus and antrum. No significant bleeding was noted from any of the biopsy sites. Retroflexion of the scope revealed a normal GE junction. The scope was then advanced into the duodenum which appeared to be normal as well. At that point the duodenum ?and the stomach were decompressed and the scope was withdrawn from the patient's mouth. The patient extubated and was transferred in stable condition to the Recovery Room for further care. I was present and performed all steps of the procedure. There were no residents to assist with this case. Torsten Santiago M.D., Ph.D. Surgeon: Tristan Santiago MD Anesthesia: MAC Was an Curriculum And Instruction Director used for this Procedure?: No Estimated blood loss (mL): 0 IV fluids (mL): 400 Urine output (mL): 0 (No zapata to record output) Pathology: other (1) antrum x1, 2) fundus x1, 3) GE junction x2, 4) distal esophagus x2) Condition: stable Disposition: PACU
[2023-06-23 09:48] VITALS: BP 103/61; PULSE 73; RESP 16; TEMP 36.6; O2SAT 98
[2023-06-23 10:08] VITALS: BP 123/86; PULSE 73; RESP 18; TEMP 36.7; O2SAT 97
== END 2023-06-23 10:58 | disposition home or self-care (01) ==
PROVIDERS: Visit Provider Surgery
PROC: 0DJ08ZZ Inspection of Upper Intestinal Tract, Via Natural or Artificial Opening Endoscopic (ICD-10-PCS; CPT 43235; principal; 2023-06-23 09:30)
DX: K21.9 Gastro-esophageal reflux disease without esophagitis (principal); E66.01 Morbid (severe) obesity due to excess calories; Z68.42 Body mass index [BMI] 45.0-49.9, adult; G47.30 Sleep apnea, unspecified; Z99.89 Dependence on other enabling machines and devices
CPT/HCPCS: 43239; 88305; 88313; 88342; J1596; J2250; J2704

== ENCOUNTER → 2023-06-23 07:57 | Outpatient (BNV) | payer OTHER, SELFPAY | PROVIDERS: Visit Provider Surgery | DX: E66.01 Morbid (severe) obesity due to excess calories (principal); Z68.42 Body mass index [BMI] 45.0-49.9, adult; K21.9 Gastro-esophageal reflux disease without esophagitis | CPT/HCPCS: 43239 ==

== ENCOUNTER 2023-07-02 09:28 | Outpatient (AMB) | payer OTHER, SELFPAY ==
--- NOTE | 2023-07-02 11:44 | MHC.OFFVISWM ---
VS Expanded 07/02/23 11:51 Height 5 ft 7.5 in Weight 288 lb 2 oz BMI 44.5 Body Fat % 47.7 Body Fat Mass 137.4 Fat Free Mass 150.8 Visceral Fat Rating 25 Body Water % 37.8 Body Water Mass 108.9 Basal Metabolic Rate/Score 1,838 Intake Visit Reasons: TV Follow Up SWL - 1ST Allergies No Known Allergies Allergy (Verified 06/23/23 08:35) HPI HPI TV Follow Up SWL - 1ST: Details: Start time: 11.38am, End time: 11.58am ?I spent 15 minutes speaking with the patient on the phone plus an additional 5 minutes reviewing and updating records for a total of 20 minutes HPI Comments Details: Overall weight loss: 15.2 lbs, or 5.01% TBWL Is doing 2 CELEBRATE REBUILD protein shakes (ONE scoop EACH in 8oz low fat unsweetened almond milk each) at 7am-9am and 10am-12pm, 2 protein bars (CELEBRATE) at 1pm-3pm and 4pm-6pm, dinner at 7pm (12 forks of protein and 12 forks of salad/vegetables). 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 Excellent progress! Continue same nutritional plan of 2 CELEBRATE REBUILD protein shakes (ONE scoop EACH in 8oz low fat unsweetened almond milk each) at 7am-9am and 10am-12pm, 2 protein bars (CELEBRATE) at 1pm-3pm and 4pm-6pm, dinner at 7pm (12 forks of protein and 12 forks of salad/vegetables). 2. Exercise: continue treadmill for 6 days per week for 400 calories 3. Continue to send me weight measurements weekly on Wednesdays
[2023-07-02 11:51] VITALS: BMI 44.5
== END 2023-07-02 11:58 | disposition home or self-care (01) ==
LOC: HO.HBS 09:28
PROVIDERS: Visit Provider Surgery
DX: E66.01 Morbid (severe) obesity due to excess calories (principal)
CPT/HCPCS: 99213

== ENCOUNTER → 2023-07-02 09:28 | Outpatient (BNVA) | payer OTHER, SELFPAY | PROVIDERS: Visit Provider Surgery ==

== ENCOUNTER 2023-07-21 09:05 | Outpatient (REF) | payer OTHER, SELFPAY ==
--- NOTE | ~2023-07-21 | FL_ITS ---
EXAMINATION: XR FLUOROSCOPY UPPER GI WITH AIR CLINICAL INFORMATION: Preop evaluation prior to bariatric surgery COMPARISON: None TECHNIQUE: Fluoroscopic air contrast upper GI examination was performed utilizing standard techniques with thin and thick barium and effervescent granules. Numerous spot images were obtained. FINDINGS: Dual and single contrast images of the esophagus demonstrate normal caliber, contour, and mucosal pattern. No evidence of stricture, mass, or ulcerations identified. Esophageal peristalsis was normal. A very small type I hiatal hernia is present. Gastroesophageal reflux is seen up to the aortic arch. Dual contrast and single contrast images of the stomach demonstrated normal contour and mucosal pattern without evidence of mass, ulceration, or other abnormality. Contrast freely passed into the gastric antrum and duodenal bulb without delay. Single and air-contrast images of the duodenal bulb demonstrate no abnormality. The duodenal sweep has a normal appearance, course, and mucosal fold appearance. The imaged proximal jejunum has a normal fold pattern and caliber. FLUOROSCOPY TIME: 2 minutes 41 second Number of Spot Images: 10 Number of Cine: 11 DOSE AREA PRODUCT: 2483 uGy-m2 (microgray-meter squared) FL/FL upper GI w air IMPRESSION: 1. Very small type I hiatal hernia. 2. Moderate gastroesophageal reflux. This procedure was performed by Jamison Galarza PA-C, and supervised by Dr. Pak
== END 2023-07-21 09:06 | disposition home or self-care (01) ==
LOC: HO.XRAY 09:05
PROVIDERS: Visit Provider Surgery
DX: E66.01 Morbid (severe) obesity due to excess calories (principal)
CPT/HCPCS: 74246

== ENCOUNTER → 2023-07-21 09:11 | Outpatient (BNV) | payer OTHER, SELFPAY | PROVIDERS: Visit Provider Physician Assistant Surgical | DX: E66.01 Morbid (severe) obesity due to excess calories (principal); Z01.818 Encounter for other preprocedural examination | CPT/HCPCS: 74246 ==

== ENCOUNTER → 2023-07-29 10:52 | Outpatient (REF) | payer OTHER, SELFPAY ==
--- NOTE | 2023-07-29 10:54 | CA_ITS ---
Acquisition Time: 2023-07-29 10:57:34 Total Exercise Time: 00:10:21 Test Indications: Abnormal ECG Medications: SEE EMAR Protocol: JAY Max HR: 176 BPM 94% of Pred: 187 BPM Max BP: 142/064 mmHG Max Work Load: 12.1 METS Exercise stress test exercise 10 min 21 sec of Jay protocol achieving 94% MPHR, without anginal symptoms, without arrhythmias, with normotensive response to exercise, without EKG changes. Echo images obtained by tech at rest and immediately post peak exercise. Definity contrast used. Test reviewed with Dr. Katz. Referred By: Rodriguez Dodd Overread By: Nidia Pak
== END ==
LOC: HO.CARD 10:52
PROVIDERS: Visit Provider Physician Assistant Surgical
DX: R94.31 Abnormal electrocardiogram [ECG] [EKG] (principal)
CPT/HCPCS: 93350; Q9957

== ENCOUNTER → 2023-07-29 10:54 | Outpatient (BNV) | payer OTHER, SELFPAY | PROVIDERS: Visit Provider Nurse Practitioner | DX: R94.31 Abnormal electrocardiogram [ECG] [EKG] (principal) | CPT/HCPCS: 93016; 93018; 93350; 93352 ==

== ENCOUNTER 2023-08-06 07:48 | Outpatient (REF) | payer OTHER, SELFPAY ==
--- NOTE | ~2023-08-06 | CT_ITS ---
EXAMINATION: CT CHEST WITH CONTRAST CLINICAL INFORMATION: Solitary pulmonary nodule. COMPARISON: Abdominal ultrasound dated 06/11/2023; chest radiographs dated 05/31/2023. TECHNIQUE: Multidetector volumetric CT imaging of the chest was obtained after the administration of 65 mL of Omnipaque 350 intravenous contrast without immediate adverse reactions. Axial MIP volume rendering provided. Sagittal and coronal reformatted images were obtained. This CT examination was performed using dose optimization techniques as appropriate, variously including the following: *Automated exposure control *Adjustment of mA and/or kV according to patient size (this includes techniques or standardized protocols for targeted exams where dose is matched to indication/reason for exam; i.e. 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 LUNGS: There are several bilateral benign, calcified granulomas. Within the lateral basal segment of the left lower lobe, a 1 mm noncalcified nodule is seen (7:147). There is no mass, infiltrate or groundglass opacity. No generalized increase is seen in peripheral interlobular septal markings. No bleb or bullous formation is seen. There is no small airway thickening. There is no bronchiectasis. The central airways appear patent. MEDIASTINUM: The mediastinum is normal. PLEURA: There is no pleural effusion. No pleural mass or thickening. AXILLA: No lymphadenopathy. There is very mild gynecomastia, left greater than right. UPPER ABDOMEN: There is mild hepatic steatosis. The adrenal glands are unremarkable. OSSEOUS STRUCTURES: There are very mild T8-T10 anterior wedge compression fractures. These appear stable from the chest radiograph dated 05/29/2023. No acute or aggressive osseous finding is noted. CT/CT chest w IV con IMPRESSION: 1. There are numerous bilateral benign, calcified granulomas, one of which at the lateral left base corresponds with the radiographic finding of 05/31/2023. There is a 1 mm noncalcified nodule at the lateral left base, of doubtful clinical significance. According to the UPDATED 2017 Fleischner Society recommendations, the advised follow-up imaging for solid nodules < 6 mm is: LOW RISK PATIENT: No routine follow-up. HIGH RISK PATIENT: Optional CT at 12 months. 2. No mass, infiltrate or groundglass opacity is seen. 3. There is no thoracic lymphadenopathy or pleural effusion. 4. There are stable very mild T8-T10 anterior wedge compression fractures. 5. There is mild hepatic steatosis. Fleischner guidelines were followed.
[2023-08-06] MEDS: iohexoL 350 MG/ML 100 ML INFUS..BTL IV (08:29)
== END 2023-08-06 07:49 | disposition home or self-care (01) ==
LOC: HO.CT 07:48
PROVIDERS: Visit Provider Surgery
DX: R91.1 Solitary pulmonary nodule (principal)
CPT/HCPCS: 71260; Q9967

== ENCOUNTER 2023-08-16 08:14 | Outpatient (AMB) | payer OTHER, SELFPAY ==
--- NOTE | 2023-08-16 15:26 | A.OFFVIS_ITS ---
VS Expanded 08/16/23 19:21 Height 5 ft 7.5 in Weight 271 lb 4 oz BMI 41.9 Body Fat % 43.8 Body Fat Mass 118.8 Fat Free Mass 152.6 Visceral Fat Rating 23 Body Water % 40.6 Body Water Mass 110.1 Basal Metabolic Rate/Score 1,855 Intake Visit Reasons: TV Pre Op LSG 08/25/23 Allergies No Known Allergies Allergy (Verified 08/16/23 15:27) Medication List - Last Reconciled 08/16/23 by Tristan Santiago MD cholecalciferol (vitamin D3) 125 mcg PO DAILY cyanocobalamin (vitamin B-12) 500 mcg (2 x 250 mcg) PO DAILY ondansetron 4 mg PO Q12H pantoprazole 40 mg PO DAILY pantoprazole 40 mg PO DAILY polyethylene glycol 3350 17 grams PO DAILY sucralfate 10 mL PO BID vitamin A palmitate 10,000 units PO DAILY HPI HPI TV Pre Op LSG 08/25/23: Details: Start time: 3pm, End time: 3.30pm ?I spent 25 minutes speaking with the patient on the phone plus an additional 5 minutes reviewing and updating records for a total of 30 minutes HPI Comments Details: Overall weight loss: 32 lbs, or 10.55% TBWL Wakes up: 3pm, sleeps: 5am Is doing 2 CELEBRATE REBUILD protein shakes (ONE scoop EACH in 8oz low fat unsweetened almond milk each) at 7am-9am and 10am-12pm, 2 protein bars (CELEBRATE) at 1pm-3pm and 4pm-6pm, dinner at 7pm (12 forks of protein and 12 forks of salad/vegetables). Exercise: is doing treadmill for 6 days per week for 400 calories [facility] Medical History (Updated 08/16/23 @ 11:09 by Renate Bullard RN) Fatty liver Sleep apnea treated with continuous positive airway pressure (CPAP) Morbid obesity Surgical History (Updated 08/12/23 @ 15:31 by Renate Bullard RN) History of esophagogastroduodenoscopy (EGD) History of surgery on left wrist Family History Paternal Grandmother Breast cancer Social History Are you a primary wound care rn to a significant other at home: No Do you presently have visiting nurse or other home services: No Alcohol intake: never Patient Tobacco Use Status: Never used Tobacco Current occupational status: employed 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 Plan for lap sleeve gastrectomy including upper GI endoscopy. All tests has been completed and reviewed and the patient is cleared for the surgery. ?If diaphragmatic or ventral hernias are present at time of surgery, these will be repaired laparoscopically as well. Risks and complications were discussed in detail including possible conversion to an open procedure, anastomotic leak, bleeding requiring transfusion, small bowel obstruction, , DVT and pulmonary embolism, cardiac, or pulmonary complications, as long filler cigar roller machine complications such as anastomotic ulcer, insufficient weight loss and vitamin deficiencies. I emphasized the importance of close follow-up, adherence to instructions and good communication. So far he has proven to be an excellent communicator and very compliant with all our directions accomplishing a great weight loss. I believe that he is an excellent candidate and he is ready. 2. Preop prescriptions were provided and explained the purpose of each one. Need to be purchased preop. Start Pantoprazole now as you get it from the pharmacy, 1 pill per day. Sucralfate and Zofran are for after surgery as needed. 3. Bowel prep: please do 7 packets ?of Miralax mixing each one with a an 8oz glass of water, crystal light, gatorade zero, or propel ?on 08/23/23 and the same amount on 08/24/23. The Miralax you begin with one packet at a time in 8oz water or crystal light, gatorade zero, or propel ?as early in the day as you can and you do them back to back until you finish them. Continue the protein shakes during ?the bowel prep. 4. Needs to purchase 1oz medicine cups . 5. Needs to purchase Children's liquid Tylenol for postop pain control. 6. Avoid aspirin, motrin, Advil, Aleve, Ibuprofen, Naproxyn. Tylenol is OK. 7. He needs to purchase the Celebrate 4:1 protein shakes from the hospital's gift shop. 8. Will do basic preop blood work-up any day between Wednesday08/16/23 and Wednesday08/20/23 fasting for 12 hours and is scheduled to see the Anesthesiologist prior to the day of surgery. 9. Importance of adherence to postop folllow-up and recommendations was underscored and he understands that. 10. Stop food and bars as of tomorrow 08/17/23 and continue with 5 Celebrate Rebuild protein shakes (TWO scoops in 8oz almond milk) at 4pm-6pm, 7pm-9pm, 10pm-12am, 1am-3am and 3am-5am. 11. No soups, broths or V8 12. The patient's?medical?history has been reviewed and they are considered low risk for post op DVT and therefore DVT prophylaxis is not considered necessary. Travel after surgery was reviewed. The patient has not disclosed any travel plans during the first 30 days after surgery and they have been advised that within the first 30 days after surgery any bus, plane, train or car travel over 2 hours in duration is contraindicated due to the possibility of developing blood clots from immobility. Any travel, needs to include periods of ambulation of 10 minutes in duration every 2 hours.? Patient was instructed to discuss any plans for travel during this period with their bariatric surgeon.? 13. Use your CPAP daily and bring it to the hospital with your mask 14. Please take at the day of surgery the following medications: NONE 15. Absolutely no smoking or vaping, or marijuana until the surgery and for at least the first 4 weeks. Only nicotine patches are allowed. 16. Send me weight measurements on Wednesday08/18/23 and then on Wednesday08/25/23, the day of surgery before you go to the hospital. 17. Avoid any steroids by mouth for any reason. Let me know if someone prescribes them to you 18. These instructions supersede anything else you read in the handbook, anything you watched in videos or classes or you were told by any other provider. If there is any conflict, you follow the above instructions and nothing else. Orders: Orders Insulin Today E66.01 - Morbid (severe) obesity due to excess calories Medications: New sucralfate 10 mL PO BID 600 mL 2RF K21.9 - Gastro-esophageal reflux disease without esophagitis ondansetron Only take one every 12 hours as needed if you have nausea 4 mg PO Q12H 20 tabs 0RF nausea and vomiting R11.0 - Nausea pantoprazole 40 mg PO DAILY 90 tabs 0RF K21.9 - Gastro-esophageal reflux disease without esophagitis polyethylene glycol 3350 Mix each measuring cup with 8oz of water, Crystal light, or Gatorade zero, or Propel and do 7 measuring cups on 08/23/23 and another 7 measuring cups on 08/24/23 17 grams PO DAILY 238 grams 0RF Z01.818 - Encounter for other preprocedural examination
[2023-08-16 19:21] VITALS: BMI 41.9
== END 2023-08-16 19:35 | disposition home or self-care (01) ==
LOC: HO.HBS 08:14
PROVIDERS: Visit Provider Surgery
DX: E66.01 Morbid (severe) obesity due to excess calories (principal)
CPT/HCPCS: 99214

== ENCOUNTER → 2023-08-16 08:14 | Outpatient (BNVA) | payer OTHER, SELFPAY | PROVIDERS: Visit Provider Surgery ==

== ENCOUNTER 2023-08-25 05:49 | Inpatient (IN) | payer OTHER, SELFPAY ==
[2023-08-16 09:17] LABS: MANUAL DIFF FLAG NO
[2023-08-16 09:34] LABS: Basophils Percent Auto 0.8 % (0-2); Eosinophils Absolute Auto 0.2 X10*3/uL (0.0-0.4); Hematocrit 42.2 % (42.0-52.0); Hemoglobin 14.8 g/dl (14.0-18.0); Imm Gran Abs Auto 0.01 X10*3/uL (0.00-0.03); Imm Gran Pct Auto 0.2 % (0.0-0.4); Lymphocytes Absolute Auto 2.1 X10*3/uL (1.2-4.9); Lymphocytes Percent Auto 38.9 % (20-40); Mean Corpuscular HGB Conc 35.1 g/dl (31.0-36.0); Mean Corpuscular Volume 85.4 fL (80.0-98.0); Mean Platelet Volume 11.3 fL (9.4-12.4); Monocytes Absolute Auto 0.4 X10*3/uL (0.1-1.2); Monocytes Percent Auto 6.8 % (2-11); Neutrophils Absolute Auto 2.7 x10*3/uL (2.0-8.3); Neutrophils Percent Auto 50.3 % (45-73); Platelet Count 205 X10*3/uL (160-400); Red Blood Count 4.94 X10*6/uL (4.60-5.80); Red Cell Distribution Width 11.9 % (11.0-16.0); White Blood Count 5.3 X10*3/uL (4.8-10.8)
[2023-08-16 09:47] LABS: INTERNATIONAL NORM RATIO 1.1 (0.9-1.1); Prothrombin Time 13.8 SEC (11.1-13.3)
[2023-08-16 09:50] LABS: Partial Thromboplastin Time 35.8 SEC (26.0-36.8)
[2023-08-16 10:19] LABS: Alanine Aminotransferase 30 U/L (0-40); Albumin Level 4.1 g/dL (3.5-5.0); Alkaline Phosphatase 65 U/L (39-117); Anion Gap 11 (12-20); Aspartate Amino Transferase 24 U/L (5-37); Bilirubin Total 0.8 mg/dL (0.0-1.0); Blood Urea Nitrogen 9 mg/dL (9-16); C Reactive Protein < 0.10 mg/dL (< or = 0.50); Calcium 9.1 mg/dL (8.4-10.2); Carbon Dioxide 25 mmol/L (22-29); Chloride 110 mmol/L (96-108); Cholesterol 158 mg/dL (<200); Estimated Glomerular Filt Rate > 60; Glucose Random 88 mg/dL (60-115); HDL Cholesterol 39 mg/dL (>40); Iron 132 mcg/dL (45-160); LDL Cholesterol Calculated 100 mg/dL (<100); Percent Iron Saturation 55 % (15-50); Potassium 3.9 mmol/L (3.3-5.1); Sodium 142 mmol/L (135-145); Total Iron Binding Capacity 239 mcg/dL (228-428); Triglycerides 95 mg/dL (<150); Unsaturated Iron Binding 107 ug/dL
[2023-08-16 10:41] LABS: Ferritin 324 ng/mL (20-250); TSH reflex Free T4 1.88 uIU/mL (0.32-4.0); Vitamin D 25-OH Total 40.2 ng/mL (>30)
[2023-08-16 11:10] VITALS: BMI 41.8
[2023-08-16 11:23] LABS: Estimated Average Glucose 94 mg/dL; Hemoglobin A1c % 4.9 % (<6.0)
[2023-08-16 11:52] LABS: Vitamin B12 508 pg/mL (200-900)
[2023-08-19 03:38] LABS: Zinc 76 mcg/dL (60-130)
[2023-08-19 21:54] LABS: Vitamin A 29 mcg/dL (38-98)
[2023-08-20 16:47] LABS: Vitamin B1 9 nmol/L (8-30)
--- NOTE | 2023-08-23 13:05 | HO.ANESPROP2 ---
Documented by User: Thea Cox NP 08/23/23 13:07 HPI - Anesthesia Eval Consult details Narrative: 33yo M for Gastrectomy Sleeve-EGD, possible diaphragmatic hernia, possible ventral hernia, possible open PMFSH Active Problems Active Problems: All Active Problems Pre-op evaluation (Acute) Esophagitis determined by biopsy (Acute) Nodule of left lung (Acute) Abnormal EKG (Acute) Vitamin A deficiency (Acute) Vitamin B12 deficiency (Acute) Vitamin D deficiency (Acute) Sleep apnea treated with continuous positive airway pressure (CPAP) (Acute) Morbid obesity (Acute) Past Medical History Medical History Fatty liver Sleep apnea treated with continuous positive airway pressure (CPAP) Morbid obesity Family History Family History Paternal Grandmother Breast cancer Surgical History Surgical History History of esophagogastroduodenoscopy (EGD) History of surgery on left wrist History of Problems with Anesthesia: No Social History Social History Are you a primary critical care nurse to a significant other at home: No Do you presently have visiting nurse or other home services: No Alcohol intake: never Patient Tobacco Use Status: Never used Tobacco Use of substances other than those prescribed or required for medical reasons: No Have you been hit, kicked, punched, or otherwise hurt by someone within the past year? 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 [employer] Allergies Allergy/AdvReac Type Severity Reaction Status Date / Time No Known Allergies Allergy Verified 08/16/23 15:27 Exam Height,Weight and Vital Signs: Height 5 ft 7.5 in Weight 122.924 kg Pertinent Lab Results Pertinent Lab Results: Laboratory Tests 08/16/23 08/16/23 09:05 09:15 WBC 5.3 RBC 4.94 Hgb 14.8 Hct 42.2 MCV 85.4 MCH 30.0 MCHC 35.1 RDW 11.9 Plt Count 205 MPV 11.3 Immature Gran % (Auto) 0.2 Neut % (Auto) 50.3 Lymph % (Auto) 38.9 [place] % (Auto) 6.8 Eos % (Auto) 3.0 Baso % (Auto) 0.8 Lymph # (Auto) 2.1 [place] # (Auto) 0.4 Eos # (Auto) 0.2 Baso # (Auto) 0.0 Abs Immat Gran (auto) 0.01 Absolute Neuts (auto) 2.7 Absolute Nucleated RBC 0.000 Nucleated RBC % (auto) 0.0 PT 13.8 H INR 1.1 APTT 35.8 Sodium 142 Potassium 3.9 Chloride 110 H Carbon Dioxide 25 Anion Gap 11 L BUN 9 Creatinine 0.85 Estim Creat Clear Calc TNP Estimated GFR > 60 Random Glucose 88 Estimat Average Glucose 94 Hemoglobin A1c % 4.9 Calcium 9.1 Iron 132 TIBC 239 % Saturation 55 H Unsat Iron Binding 107 Ferritin 324 H Total Bilirubin 0.8 AST 24 ALT 30 Alkaline Phosphatase 65 C-Reactive Protein < 0.10 Total Protein 7.0 Albumin 4.1 Triglycerides 95 Cholesterol 158 LDL Cholesterol, Calc 100 H HDL Cholesterol 39 L Vitamin A 29 L Vitamin B1 9 Vitamin B12 508 25-OH Vitamin D Total 40.2 TSH 1.88 Zinc 76 Blood Type O Negative Antibody Screen NEGATIVE Narrative Narrative: EKG 05/2023 Vent. Rate : 077 BPM Atrial Rate : 077 BPM P-R Int : 174 ms QRS Dur : 096 ms QT Int : 378 ms P-R-T Axes : 046 039 030 degrees QTc Int : 427 ms Normal sinus rhythm Nonspecific ST and T wave abnormality Abnormal ECG No previous ECGs available Exercise Stress 06/2023 Protocol: MELECIO Max HR: 166 BPM 88% of Pred: 187 BPM Max BP: 170/030 mmHG Max Work Load: 10.1 METS Exercise stress test exercose 8 min 59 sec of Melecio protocol achieivng 87% MPHR and 10.1 METS, without anginal symptoms, without arrhythmias, with normotensive with lowest diastolic blood pressure 30 mmHg, with T wave inversion in lead V6 reviewed with Dr. Katz. Stress ECHO 07/2023 Protocol: MELECIO Max HR: 176 BPM 94% of Pred: 187 BPM Max BP: 142/064 mmHG Max Work Load: 12.1 METS Exercise stress test exercise 10 min 21 sec of Melecio protocol achieving 94% MPHR, without anginal symptoms, without arrhythmias, with normotensive response to exercise, without EKG changes. Echo images obtained by tech at rest and immediately post peak exercise. Definity contrast used. Test reviewed with Dr. Katz. Exercise stress echocardiogram was reviewed. At rest, there is normal LVEF and wall motion. With peak exercise, there is appropriate augmentation of wall thickening and contractility. There is normal decrease in end-systolic volumes. No evidence of exercise induced diastolic dysfunction or pulmonary hypertension. Overall, normal study. Assessment and Plan Assessment Anesthesia Assessment: Chart Reviewed Final Anesthetic Review History of Problems with Anesthesia: No Documented by User: Katelyn Aguila MD 08/25/23 08:28 HPI - Anesthesia Eval Consult details Narrative: 33yo M for EGD, Laparoscopic Sleeve Gastrectomy, possible diaphragmatic hernia repair, possible ventral hernia repair, possible open PMFSH Past Medical History Medical History Fatty liver Sleep apnea treated with continuous positive airway pressure (CPAP) Morbid obesity Family History Family History Paternal Grandmother Breast cancer Family history of problems with anesthesia: No Surgical History Surgical History History of esophagogastroduodenoscopy (EGD) History of surgery on left wrist History of Problems with Anesthesia: No Social History Social History Are you a primary critical care nurse to a significant other at home: No Do you presently have visiting nurse or other home services: No Alcohol intake: never Patient Tobacco Use Status: Never used Tobacco Use of substances other than those prescribed or required for medical reasons: No Have you been hit, kicked, punched, or otherwise hurt by someone within the past year? 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 Denies loose teeth) Heart: RRR Lungs: CTAB Assessment and Plan Assessment Anesthesia Assessment: Anesthesia Plan Discussed and Chart Reviewed Final Anesthetic Review Family History of Problems with Anesthesia: No History of Problems with Anesthesia: No NPO: Yes ASA Class: III Final Preanesthetic Review: No Changes in Pt Med Stat, Meds/Allgs Chart Reviewed, Consent Obtained/Reviewed and Anes Risks/Benef Reviewed Patient Risk: Intermediate Procedure Risk: Intermediate Assessment/Block/Sedation in SS: Assess/Block/Sedation-SS Anesthetic Plan Anesthetic Plan: GA Disposition: Standard PACU and Inp. Admit - Standard Bed
[2023-08-25] VITALS (12 sets, daily range): BP systolic 115–141; BP diastolic 45–78; PULSE 67–83; RESP 16–20; TEMP 36.1–37.1; O2SAT 90–100; BMI 41.5
[2023-08-25] MEDS: Lactated Ringers 1,000 ML 999 ML IV (06:13)
[2023-08-25] MEDS: Aprepitant 32 MG/4.4 ML VIAL IVPUSH (06:13)
[2023-08-25] MEDS: Lactated Ringers 1,000 ML 100 ML IVCONT ×3 (06:13→22:32)
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
--- NOTE | 2023-08-25 06:26 | PC.NURSE ---
[employer]ed[employer] called for CPAP check conf # [id number].
--- NOTE | 2023-08-25 07:39 | MHC.SHP ---
Pre-Procedural Eval Section A - 24 Hr Update-Section A only Date of Service: 08/25/23 The patient is an INPATIENT: Yes The patient has been examined within 24 hours of the surgical procedure. The History & Physical has been completed within 30 days and I have reviewed it.: Yes Section B - Complete if H&P > 30 days Chief Complaint: Morbid obesity Relevant Family History (Specify if Yes): No Relevant Social History: None Present Medications: None Medical History: No relevant PMH History of Previous Operations: No relevant previous surgery Allergies: Allergies Allergy/AdvReac Type Severity Reaction Status Date / Time No Known Allergies Allergy Verified 08/16/23 15:27 Review of Systems Sugical H&P ROS: Negative: Constitution, Cardiovascular, Respiratory, Neurological, Psychiatric, Hem-Onc, Allergic/Immunologic, Gastrointestinal, Genitourinary, Musculoskeletal, Integumentary, Endocrine and Eyes/Ears/Nose/Throat Exam Surgical H&P Exam: Normal: HEENT, Normal: Heart, Normal: Lungs, Normal: Extremities, Normal: Abdomen, Normal: Skin and Normal: Neurological Plan Diagnosis/Plan: Unchanged I have reviewed the history and physical and performed a pertinent physical examination on my patient. No changes have occurred unless specified. Time Spent With Patient Time: Total time managing care of this patient today ____ minutes.
[2023-08-25] MEDS: ceFAZolin Sodium/Dextrose,Iso 2 GM/50 ML PIGGYBACK IV ×2 (08:01→13:26)
[2023-08-25] MEDS: Acetaminophen 1,000 MG/100 ML PIGGYBACK 400 MG IV (09:00)
--- NOTE | 2023-08-25 10:26 | PM.OP ---
Brief Operative Note Date of Service: 08/25/23 Pre-op diagnosis: Morbid obesity with comorbidities (see below) Post-op diagnosis: same Procedure: INITIAL PATIENT BMI ON PRESENTATION AT OUR OFFICE: 46.8 kg/m2 LAST BMI BEFORE SURGERY: 41.3 kg/m2 COMORBIDITIES: sleep apnea on CPAP, GERD, liver steatosis, ?The patient presented to the Weight Management Program with significant obesity that was negatively impacting the patient's comorbidities as listed above.? The program is a phased program with a special focus on preoperative medical weight management to promote substantial weight loss and prepare the patients for the second phase of the program: bariatric surgery. The patient participated in an intensive weekly lifestyle ?intervention and exercise program during which the patient ?has lost between the initial office visit and the last preoperative visit 34 lbs, or 11.2% of initial actual body weight. It was deemed appropriate for the patient to now have bariatric surgery. In light of the current Covid-19 pandemic and the well documented strong association of obesity and increased risk of worse outcomes if infected with Covid-19 (REFERENCES:https://pubmed.ncbi.nlm.nih.gov/82559694/,?https://pubmed.ncbi.nlm.nih.gov/87814436/), any delay in undergoing bariatric surgery may lead to the patient's worsening health condition and increased?risk of more severe Covid-19 disease if infected. In addition a recent?study from [facility] published in [facility] on 02/10/2021 ([email or web address]) found that, among patients with obesity, substantial weight loss achieved with surgery was associated with improved outcomes of COVID-19 infection. The findings suggest that obesity can be a modifiable risk factor for the severity of COVID-19 infection. In addition, the patient met the BMI-criteria for bariatric surgery based on the BMI on initial presentation. The patient should not be penalized for achieving such weight loss because ?it is not sustainable long-term without surgical intervention and it was achieved in preparation for bariatric surgery ?under my direction and based on my published research ([email or web address]).pdf and?https://www.soard.org/article/F9777-3775(26)19698-X/pdf) ?that a 10% preoperative weight loss improves long-term weight loss after surgery and reduces perioperative complications.? Insurance carriers such as [facility] have endorsed my recommendations ?and have included in their policies criteria to include a 10% preoperative weight loss requirement. PROCEDURE: Esophago-gastroscopy,laparoscopic lysis of adhesions, laparoscopic sleeve gastrectomy and laparoscopic gastropexy INDICATIONS: This is a 33 year-old male who was electively scheduled for laparoscopic, possibly open sleeve gastrectomy. The risks and complications of the procedure were discussed with the patient in advance, particularly the possibility of ; pulmonary embolism; staple line leak; bleeding; GERD; cardiac, pulmonary, or renal complications; as well as long-term problems such as insufficient weight loss, vitamin deficiency, strictures, or ulcers. The patient understood all the risks, and was in agreement to proceed with surgery. DESCRIPTION OF PROCEDURE: After informed consent was obtained from the patient, the patient was given preoperative antibiotics, and was transferred to the operating room. After successful induction of general anesthesia, pneumatic compression devices were placed on both lower extremities. An upper endoscopy was performed next. The oropharynx and esophagus appeared to be within normal limits. There was no significant diaphragmatic hernia present consistent with the findings of the preoperative upper GI. The stomach was entered. Then after all fluid and air were suctioned and the stomach was fully decompressed, the scope was withdrawn and secured in the mid esophagus. The patient was then prepped and draped in the usual sterile manner, and abdominal access was established at the right upper quadrant with the Keely technique. A 12 mm blunt port was inserted, and the abdomen was insufflated with CO2 to a pressure of 15 mmHg. Under direct visualization, additional ports were placed, specifically two 5 mm Versi-step ports to the left upper quadrant, and a 5 mm Versi-Step port to the right upper quadrant. 1% lidocaine plain was used to infiltrate all port sites as well as all fascia defects. Following that, the patient was placed in a steep reverse Trendelenburg position. An additional 5 mm port was placed to the right flank for the Mediflex retractor that was used to retract the left lobe of the liver. The gastro-esophageal fat pad was opened with the ultrasonic device (Thunderbeat, Olympus) and the anterior esophagus and hiatus were exposed. The angle of His was opened with the ultrasonic device the fundus of the stomach from any diaphragmatic and splenic attachments. I then opened the gastrocolic ligament between the transverse colon and the greater curvature of the stomach with the ultrasonic device to enter the lesser sac and facilitate the ligation of the short gastric vessels. I started at a mid-point along the greater curvature and using the Thunderbeat, all short gastric vessels were divided all the way to the angle of His until the left jonathan was completely dissected at its entirety. I then divided the gastro-colic ligament distally to a distance of about 3-4 cm proximal to the pylorus. There were extensive congenital adhesions between the pancreas and posterior gastric wall. Those were lysed completely with the ultrasonic device. Adhesiolysis took approximately 45 min to complete.? The stomach was then divided transversely with two Endo BUDDY-45 purple and three BUDDY-60 articulating purple loads using the Razer stapler and loads. Every effort was made that the gastric sleeve had a tubular shape and an even caliber throughout. Once the sleeve resection was completed, the staple line of the gastric sleeve was reinforced with Hemoclips. The resected stomach was retrieved without difficulty from the Keely port. A gastropexy was then performed in order to prevent postoperative GERD and partial gastric volvulus. Several interrupted 2.0 Surgidac sutures were placed between the sleeve's staple line and the previously divided greater omentum and gastro-colic ligament using the Endo-Stitch device. ?An upper endoscopy was performed. There was no narrowing at the GE junction. The scope was easily advanced all the way to the pylorus which was clearly visualized. There was no narrowing anywhere and the sleeve's caliber was even throughout. The sleeve's staple line was inspected and there was no evidence of ischemia, bleeding or dehiscence. At that point the gastroscope was withdrawn from the patient?s mouth while we were decompressing the bowel and the stomach from any remaining air. I looked into the lesser sac to see how the sleeve was situating and it was situating well. There was no bleeding from the staple line, spleen, or short gastric vessels. The Mediflex retractor was removed, and the undersurface of the liver was inspected and there was no bleeding. The patient was placed in supine position. I closed the fascial defect of the 12 mm port site with a figure of eight #1 Polysorb suture. Then 30cc Ropivacaine plain with 10 mg of Dexamethasone were used to infiltrate the fascial closure as well as all skin incisions. A total of 7ml Zynrelef was applied in the Keely wound. At this point, the abdomen was deflated, all ports were removed under direct vision, and no bleeding was noted from any of the port sites. The skin incisions were irrigated with saline and were closed with 4-0 absorbable monofilament sutures. Steri-Strips and OpSites were used to cover all incisions. The patient was extubated and was transferred in stable condition to the recovery room for further care. I was present and performed all cortes parts of the procedure. Mr. Dodd was the physician's assistant. There were no residents to assist with this case. Torsten Santiago MD, PhD, FACS Surgeon: Tristan Santiago MD Anesthesia: GETA, local and other (TAP block and 7ml Zynrelef) Was an Tester Electronic Scale used for this Procedure?: Yes Tester Electronic Scale: Rodriguez Dodd Estimated blood loss (mL): 10 IV fluids (mL): 2,500 Urine output (mL): 0 (No Barnes to record output) Pathology: other (Stomach) Condition: stable Disposition: PACU
--- NOTE | 2023-08-25 10:33 | P.PNGS_ITS ---
Subjective Subjective Date of Service: 08/26/23 Interval history: Feels well. Mild incisional pain. She is tolerating phase 1 bariatric diet Physical Exam 2 Vital Signs: Vital Signs: Last Vital Signs Temp 97.0 F 08/25/23 06:21 Pulse 75 08/25/23 06:21 Resp 16 08/25/23 06:21 BP 141/77 H 08/25/23 06:21 Pulse Ox 98 08/25/23 06:21 O2 Del Method Room Air 08/25/23 06:21 BMI result Body Mass Index 41.5 GI: Inspection: Yes normal to inspection, Yes incision (clean, dry and intact) and Yes obesity Palpation (GI): Soft to palpation Extrem: Right lower extremity: normal to inspection (no calf tenderness) L eft lower extremity: normal to inspection (no calf tenderness) Objective Data Active Medications Droperidol (Droperidol 5 Mg/2 Ml Vial) 0.625 mg IVPUSH ONCE PRN PRN Reason: intractable nausea Stop: 08/25/23 14:30 Fentanyl (Fentanyl Citrate/Pf 100 Mcg/2 Ml Vial) 25 mcg IVPUSH Q5M PRN PRN Reason: Pain, Moderate(Pain Scale 4-6) Stop: 08/25/23 14:30 Hydromorphone HCl (Hydromorphone Hcl 0.5 Mg/0.5 Ml Syringe) 0.25 mg IVPUSH Q5M PRN PRN Reason: Pain, Severe (Pain Scale 7-10) Stop: 08/25/23 14:30 Lactated Ringer's (Lr) 1,000 mls @ 100 mls/hr IVCONT .Q10H LEONARD Last Admin: 08/25/23 06:13 Dose: 100 mls/hr Documented By: JASON Zarate 08/26/23 05:51 08/26/23 05:51 Procedures Date of Service Date of Service: 08/26/23 Progress Note: A&P Assessment and plan (1) Morbid obesity: Status: Acute (2) Sleep apnea treated with continuous positive airway pressure (CPAP): Status: Acute (3) Fatty liver: Status: Acute (4) GERD (gastroesophageal reflux disease): Status: Acute (5) Congenital intra-abdominal adhesions: Status: Acute (6) Status post sleeve gastrectomy: Status: Acute Assessment and Plan: s/p laparoscopic sleeve gastrectomy, lysis of adhesions and gastropexy Doing well Will check am labs and if OK the patient will be discharged home Time Spent With Patient Time: Total time managing care of this patient today ____ minutes. Quality Stroke Does the patient have a stroke diagnosis?: No VTE Prior VTE?: No VTE Risk Level:: Surgical - moderate VTE Device Contraindication: N/A - Device Ordered VTE Drug Contraindication: Treatment Not Indicated
--- NOTE | 2023-08-25 10:35 | PM.DS ---
DS: Providers Provider Date of Service: 08/26/23 Date of admission: 08/25/23 05:49 Primary care physician: Unknown Physician DS: Summary Hospital Course Hospital Course: ADMITTING DIAGNOSIS: morbid obesity, andrés ? DISCHARGE DIAGNOSIS: same, s/p laparoscopic sleeve gastrectomy ? PAST SURGICAL HISTORY: left wrist surgery ? PROCEDURE: upper endoscopy, laparoscopic sleeve gastrectomy ? DISCHARGE SUMMARY: ? History of Present Illness: ? The patient is a?33 year-old mlae with a BMI of?46.8 kg/m2 and associated co-morbidities as described above. The patient had extensive work-up,lost?33.1 lbs preoperatively and was electively scheduled for laparoscopic, possible open sleeve gastrectomy and gastropexy. Risks and complications of the surgery were discussed with the patient in advance, particularly the possibility of , pulmonary embolism, anastomotic leak, bleeding, bowel injury, GERD, cardiac, renal or pulmonary complications. The patient understood all the risks and was in agreement with the surgical plan. ? Hospital Course: ? The patient underwent an uneventful laparoscopic sleeve gastrectomy with gastropexy on the day of admission. Postoperatively, the patient was transferred to the surgical floor. The patient received IV Acetaminophen and IV dilaudid for pain control. Patient was started on bariatric phase 1 diet POD #0. On postoperative day one, the patient was feeling well without nausea, vomiting, fevers, or tachycardia. The patient had some mild incisional pain and the abdomen was soft. ? On the morning of postoperative day one, the patient was continued on 1 ounce of water or ice every half hour. During the day, the patient did fairly well, having some incisional pain, but able to ambulate adequately and to tolerate liquids well. ? Since the patient is doing well, we decided that the patient was ready to be discharged. The patient was given instructions to follow-up with me next week and to call my office for any fever over 101, persistent abdominal pain, nausea, vomiting, GERD, symptoms of DVT such as calf tenderness, or leg swelling, or pulmonary embolism such as chest pain or shortness of breath. The patient was also instructed to drink 40-60 ounces of liquids per day using the 1-ounce cups. The patient had been given prescriptions for Tylenol for pain, Zofran prn for nausea, and pantoprazole and carafate previously. The patient was encouraged to ambulate and use the incentive spirometer. The patient was allowed to shower, but no baths, and encouraged to stay active at home. All of these instructions were given to the patient personally. All questions were answered and the patient understood all instructions, the instructions were also given to the patient in print. Time Attestation Total time managing care of this patient today: 25 mintues. Discharge Coordination Time (in mins): 25 Quality: Safe Use of Opioids Does Pt have an Active Cancer Diagnosis on the Problem List?: No Quality: Stroke Does the patient have a stroke diagnosis?: No Physical Exam Vital Signs: Vital Signs: Last Vital Signs Temp 97.0 F 08/25/23 06:21 Pulse 75 08/25/23 06:21 Resp 16 08/25/23 06:21 BP 141/77 H 08/25/23 06:21 Pulse Ox 98 08/25/23 06:21 O2 Del Method Room Air 08/25/23 06:21 BMI result Body Mass Index 41.5 DS: Data Data Completed and Pending Pending studies at discharge: Pending at discharge 08/25/23 10:00 Surgical [PTH] Routine Discharge Plan Discharge Anticipated Discharge Date/Time: 08/26/23 10:00 Patient Disposition: Home, Self-Care Discharge Diagnosis: s/p laparoscopic sleeve gastrectomy Referrals: Physician,Unknown J [Primary Care Provider] - 1 Week Discharge Medications: Continued pantoprazole 40 mg tablet,delayed release (DR/EC) 40 mg PO DAILY Qty: 90 0RF sucralfate [Carafate] 100 mg/mL suspension 10 ml PO BID ondansetron 4 mg tablet,disintegrating 4 mg PO Q12H PRN (Reason: nausea/vomiting) Discontinued cholecalciferol (vitamin D3) 125 mcg (5,000 unit) capsule 125 mcg PO DAILY Qty: 90 0RF vitamin A palmitate 3,000 mcg (10,000 unit) capsule 10,000 unit PO DAILY Qty: 60 0RF Discharge Orders: Discharge Order (Routine); Ordered 08/26/23 Ordered By: Tristan Santiago Activity on Discharge: No heavy lifting Stand Alone Forms: Patient Portal Discharge page Print Language: Croatian Care Plan Goals: weight loss Health Concerns: morbid obesity Plan of Treatment: No tub baths, sex or returning to work until discussed at first post op appointment. No exercise, alcohol, tobacco or illegal drug use. Continue to use incentive spirometer hourly while awake. Walk in home for 5- 10 minutes every 2 hours during the first week. Follow all instructions in the bariatric handbook and call with any questions.Discharge Instructions 1. Please call your doctor or come back to the emergency room should any new symptoms arise. 2. You will receive a courtesy call from [facility] 24-48 hours after discharge. 3. Activity: abstain from alcohol, practice limited stair climbing, no bending, no driving, no exercise, no illicit substances, no lifting, no sex, no tub bath, no work. 4. Diet: continue as discussed with Dr. Santiago. 5. Dressing Change/Wound Care: Your incision is covered by clear bandages and guaze underneath. If the area is tender, you may apply an ice pack for short intervals (no more than 20 minutes on, followed by at least 20 minutes off). Do not apply heat. Do not use creams, lotions, or topical antibiotics unless instructed to do so by your surgeon. These can cause infection or allergic reaction. 6. Call your doctor if: - Your temperature exceeds 101.5 F - You experience excessive pain or swelling - You have an unexpected reaction to medication - You have excessive bleeding - You experience continued vomiting/nausea - Your incision begins to separate - Your incision shows signs of infection such as increased redness, swelling, excessive pain, heat, or drainage (light blood or clear fluid is normal) 7. General instructions: No lifting greater than 5 lbs for 1 week and not more than 20lbs the next 3?weeks. No driving until seen at the office in 5-7 days after surgery. If you do not move your bowels in the next 2 days, please tell?Dr. Santiago. Please walk around your home every hour or two to prevent blood clots from forming in your legs. You do not need to wake from sleeping to walk. Please sleep in a bed or couch to prevent kinking at the hips and knees. Please take your incentive spirometer (your lung adapted physical education specialist) home with you and use it for the next few days to prevent pneumonia. You may shower, no hot tubs, baths or swimming pools.?Please follow the post op diet instructions you are?given by Dr Santiago? and text me daily at 5-6pm for an update.?If you have any issues or concerns or questions please communicate this to him via text.? The Celebrate shakes have all of the bariatric vitamins you need if you consume these shakes. If you are drinking other protein shakes, you will need to purchase the Celebrate multivitamins and calcium that are available in the hospital gift shop on the first floor of the [facility].??Do not take anything without first discussing with Dr Santiago. Please make sure you are consuming at least 40 ounces of fluids per day starting the?day AFTER your discharge from the hospital. Always drink 1-2 ml per minute using the 5ml?syringe. If you drink faster you may experience?bloating,?gas pain, burping, nausea or heartburn. In that case please slow down your pace and use the syringe to?understand better the?proper?pace and volume of drinking. Do not hesitate to contact the office with any questions at . The patient's medical history has been reviewed and they are considered low risk for post op DVT and therefore DVT prophylaxis is not considered necessary. Travel after surgery was reviewed. The patient has not disclosed any travel plans during the first 30 days after surgery and they have been advised that within the first 30 days after surgery any bus, plane, train or car travel over 2 hours in duration is contraindicated due to the possibility of developing blood clots from immobility. Any travel, needs to include periods of ambulation of 10 minutes in duration every 2 hours.? The patient was instructed to discuss any plans for travel during this period with their bariatric surgeon. Assessment: stable s/p laparoscopic sleeve gastrectomy Discharge Date/Time: 08/26/23 09:32
[2023-08-25] MEDS: HYDROmorphone HCl 0.5 MG/0.5 ML SYRINGE 0.25 MG IVPUSH ×2 (10:45→10:59)
[2023-08-25 11:51] LABS: Hematocrit 39.9 % (42.0-52.0); Hemoglobin 14.2 g/dl (14.0-18.0)
[2023-08-25 12:11] LABS: Anion Gap 12 (12-20); Blood Urea Nitrogen 13 mg/dL (9-16); Calcium 9.1 mg/dL (8.4-10.2); Carbon Dioxide 24 mmol/L (22-29); Chloride 106 mmol/L (96-108); Creatinine Clr Calc Pharmacy 147.7; Estimated Glomerular Filt Rate > 60; Glucose Random 131 mg/dL (60-115); Potassium 3.7 mmol/L (3.3-5.1); Sodium 138 mmol/L (135-145)
[2023-08-25] MEDS: Metoclopramide HCl 10 MG/2 ML VIAL IVPUSH (12:33)
--- NOTE | 2023-08-25 13:33 | PHA.MEDREC ---
Pharmacy Consult ? Medication Reconciliation Pharmacy has completed the medication reconciliation. Confirmed medications with patient. I asked the pt about taking a Sucralfate suspension for after surgery looking at when it was picked up in claims and he was not sure if he was taking it or not but left in his med rec along with Ondansetron which he did confirm he is staring after surgery.
[2023-08-25] MEDS: Acetaminophen 1,000 MG/100 ML PIGGYBACK 16.7 MG IV ×2 (15:10→20:11)
[2023-08-25] MEDS: 0.9 % Sodium Chloride Flush 3 ML SYRINGE IVFLUSH (20:13)
[2023-08-25] MEDS: Famotidine/PF 20 MG/2 ML VIAL IVPUSH (20:13)
[2023-08-26] MEDS: Acetaminophen 1,000 MG/100 ML PIGGYBACK 16.7 MG IV (01:58)
[2023-08-26 03:43] VITALS: BP 124/57; PULSE 76; RESP 18; TEMP 37.2; O2SAT 96
[2023-08-26 06:36] LABS: MANUAL DIFF FLAG NO
[2023-08-26 07:12] LABS: Blood Urea Nitrogen 10 mg/dL (9-16); Creatinine Clr Calc Pharmacy 164.3; Estimated Glomerular Filt Rate > 60; Glucose Random 108 mg/dL (60-115)
[2023-08-26 07:17] LABS: Basophils Percent Auto 0.1 % (0-2); Hemoglobin 14.1 g/dl (14.0-18.0); Imm Gran Abs Auto 0.07 X10*3/uL (0.00-0.03); Imm Gran Pct Auto 0.6 % (0.0-0.4); Lymphocytes Absolute Auto 1.1 X10*3/uL (1.2-4.9); Lymphocytes Percent Auto 10.2 % (20-40); Mean Corpuscular HGB Conc 36.2 g/dl (31.0-36.0); Mean Corpuscular Hemoglobin 30.1 pg (27.0-33.0); Mean Corpuscular Volume 83.2 fL (80.0-98.0); Mean Platelet Volume 11.5 fL (9.4-12.4); Monocytes Absolute Auto 0.7 X10*3/uL (0.1-1.2); Monocytes Percent Auto 6.1 % (2-11); Neutrophils Absolute Auto 9.2 x10*3/uL (2.0-8.3); Platelet Count 226 X10*3/uL (160-400); Red Blood Count 4.69 X10*6/uL (4.60-5.80); Red Cell Distribution Width 12.1 % (11.0-16.0)
[2023-08-26] MEDS: Famotidine/PF 20 MG/2 ML VIAL IVPUSH (07:27)
[2023-08-26 07:33] LABS: Anion Gap 13 (12-20); Carbon Dioxide 21 mmol/L (22-29); Chloride 109 mmol/L (96-108); Sodium 139 mmol/L (135-145)
[2023-08-26 08:00] VITALS: BP 161/49; PULSE 67; RESP 13; TEMP 37.7; O2SAT 97
--- NOTE | 2023-08-26 08:38 | MHC.CM.PN ---
Addendum entered by Sylwia Tijerina 08/26/23 10:45: Patient discharged to home self care. Patients Mother provided the ride home. Original Note: Male 33 s/p Gastric Sleeve. He lives with his Mother. He is independent with all functional mobility. A HCP has been documented and scanned into the EMR. DP Home self care. Patients Mother will provide transportation home.
--- NOTE | 2023-08-26 09:06 | HO.POSTANES ---
Post Anesthesia Evaluation Post Anesthesia Evaluation Date of Service: 08/26/23 Vital Signs: Vital Signs Temp Pulse Resp BP Pulse Ox O2 Del Method 08/26/23 08:00 99.8 F 67 13 161/49 H 97 Room Air 08/26/23 07:37 Room Air 08/26/23 03:43 98.9 F 76 18 124/57 L 96 Room Air 08/25/23 23:21 98.8 F 69 18 119/57 L 98 Room Air Anesthesia: General Endotracheal-GETA Mental Status: Awake Pain Control: Satisfactory Nausea/Vomiting: None Hydration: Adequate Anesthesia-Related Issues: No Anes. Related Issues
== END 2023-08-26 09:32 | disposition home or self-care (01) | DRG 403 ==
LOC: HO.SSSA 06:21 → HO.S3 10:38
PROVIDERS: Physician Assistant Surgical; Admitting Provider Surgery; Visit Provider Surgery
PROC: 0DB64Z3 Excision of Stomach, Percutaneous Endoscopic Approach, Vertical (ICD-10-PCS; CPT 43845; principal; 2023-08-25 07:30)
DX: E66.01 Morbid (severe) obesity due to excess calories (principal); K76.0 Fatty (change of) liver, not elsewhere classified; Q43.3 Congenital malformations of intestinal fixation; G47.33 Obstructive sleep apnea (adult) (pediatric); K21.9 Gastro-esophageal reflux disease without esophagitis; Z68.41 Body mass index [BMI] 40.0-44.9, adult; Z79.899 Other long term (current) drug therapy
CPT/HCPCS: 36415; 80048; 80053; 80061; 82306; 82607; 82728; 83036; 83540; 84425; 84443; 84590; 84630; 85014; 85018; 85025; 85610; 85730; 86140; 86850; 86900; 86901; 88304; 88305; 88307; 88342; A4649; C9088; C9145; J0131; J0690; J1100; J1170; J2250; J2405; J2704; J2765; J2795; J3010; J7120

== ENCOUNTER → 2023-08-25 05:49 | Outpatient (BNV) | payer OTHER, SELFPAY | PROVIDERS: Admitting Provider Surgery; Visit Provider Surgery | DX: E66.01 Morbid (severe) obesity due to excess calories (principal); Z68.41 Body mass index [BMI] 40.0-44.9, adult; Z90.3 Acquired absence of stomach [part of]; Z98.84 Bariatric surgery status | CPT/HCPCS: 43659; 43775; 99024; 99499 ==

== ENCOUNTER 2023-08-31 10:37 | Outpatient (AMB) | payer OTHER, SELFPAY ==
--- NOTE | 2023-08-31 11:07 | A.OFFVIS_ITS ---
VS Expanded 08/31/23 11:23 BP 135/66 Blood Pressure Location Rt brachial Blood Pressure Position Sitting Pulse 83 Pulse Source Pulse Oximeter Temp 97.3 F Temperature Source Temporal Artery Scan Pulse Oximetry 96 Oxygen Delivery Method Room Air Height 5 ft 7.5 in Weight 253 lb 9.6 oz BMI 39.1 Body Fat % 37.2 Body Fat Mass 94.4 Fat Free Mass 159.2 Visceral Fat Rating 19.0 Body Water % 44.4 Body Water Mass 112.6 Muscle Mass/Score 151.2 Basal Metabolic Rate/Score 2,215 Intake Visit Reasons: (OV) PO LSG 08/25/23 Allergies No Known Allergies Allergy (Verified 08/31/23 11:07) HPI Comments Details: Patient is a pleasant 33-year-old male who returns to the office today he is approximately 6 days post sleeve gastrectomy performed on 08/25/2023. He is tolerating 3 celebrate 4 in 1 shakes with 1 scoop each in approximately 50 oz of fluids. He is moved his bowels. [facility] Medical History (Updated 08/25/23 @ 10:34 by Tristan Santiago MD) Fatty liver Sleep apnea treated with continuous positive airway pressure (CPAP) Morbid obesity Surgical History (Updated 08/31/23 @ 11:08 by Nidhi Shah CMA) Status post sleeve gastrectomy History of esophagogastroduodenoscopy (EGD) History of surgery on left wrist Family History Paternal Grandmother Breast cancer Social History Household Members: Significant Other Housing: House Are you a primary career placement services counselor to a significant other at home: No Do you presently have visiting nurse or other home services: No Alcohol intake: never Patient Tobacco Use Status: Never used Tobacco service: No Current occupational status: employed 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 Original weight on 05/21/2023 was 303.4 pounds and op weight was 270.3 pounds. Be sure to text Dr Santiago exactly 1 week after surgery your weight from your home scale so he can adjust your meal plan. Continue meal plan until f/u [place] Fri[place] in 2 weeks May shower, no submersion in bath for another week Continue abdominal binder with activity and exercise for the next 2 weeks. Exercise prior to surgery was treadmill and may resume No abdominal exercises for 6 weeks post operatively Will be emailed link to post op video for review Reminded of the pace of drinking, 2 mL per minute, 1 oz/15 min.
[2023-08-31 11:23] VITALS: BP 135/66; PULSE 83; TEMP 36.3; O2SAT 96; BMI 39.1
== END 2023-08-31 11:56 | disposition home or self-care (01) ==
PROVIDERS: Visit Provider Physician Assistant Surgical
DX: Z90.3 Acquired absence of stomach [part of] (principal); Z98.84 Bariatric surgery status
CPT/HCPCS: 99024

== ENCOUNTER → 2023-08-31 10:37 | Outpatient (BNVA) | payer OTHER, SELFPAY | PROVIDERS: Visit Provider Physician Assistant Surgical | DX: Z48.815 Encounter for surgical aftercare following surgery on the digestive system (principal); Z90.3 Acquired absence of stomach [part of] | CPT/HCPCS: 99212 ==

== ENCOUNTER 2023-09-13 12:06 | Outpatient (AMB) | payer OTHER, SELFPAY ==
--- NOTE | 2023-09-13 12:08 | A.OFFVIS_ITS ---
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 Presents for 2 week post op visit. Weight today is 241.8 pounds, with a BMI of 37.3. There has been a 61.6 pound weight loss,(initial weight 303.4 pounds) since starting the program on 05/21/2023 reflecting a 20.3 % total body weight loss and a weight loss of 28.5 pounds since surgery (operative weight 270.3 pounds) reflecting a 10.5 % TBWL since surgery. No complaints of nausea, emesis, abdominal pain or reflux. Reports infrequent but normal bowel movements every 5-6 days and uses stool softeners regularly. States that he would like to exchange the 3rd shake, celebrate rebuild for a celebrate bar as it is easier for him when he is in the truck. Present meal plan includes: Celebrate 4 in 1 2 scoops 3-5 pm, 6-8 pm celebrate rebuild 2 scoops 9-11pm celebrate bar 12-3am drinking 24 oz ? Exercise routine includes: PF, cardio treadmill, 4 days per week [address] [facility] Medical History (Updated 09/03/23 @ 00:02 by J Carlos Flores) Fatty liver Sleep apnea treated with continuous positive airway pressure (CPAP) Morbid obesity Surgical History Status post sleeve gastrectomy History of esophagogastroduodenoscopy (EGD) History of surgery on left wrist Family History Paternal Grandmother Breast cancer Social History Household Members: Significant Other Housing: House Are you a primary director of career services to a significant other at home: No Do you presently have visiting nurse or other home services: No Alcohol intake: never Patient Tobacco Use Status: Never used Tobacco service: No Current occupational status: employed 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 He is only moving his bowels 1 to possibly 2 times per week but has no complaints of abdominal pain or straining. He additionally wishes to change his meal plans slightly Wednesday through Wednesday to remove the celebrate rebuild shake and substitute in a celebrate bar. I told him that he may do this with the addition of extra fluids as he will be getting less fluids per day, he says that he will do this. He will additionally continue his exercise routine as he is doing at the gym and return to the office in approximately 4 weeks. I have encouraged him to text weekly especially with any questions or concerns.
[2023-09-13 12:14] VITALS: BP 110/67; PULSE 84; TEMP 35.6; O2SAT 96; BMI 37.3
== END 2023-09-13 12:38 | disposition home or self-care (01) ==
PROVIDERS: Visit Provider Physician Assistant Surgical
DX: Z90.3 Acquired absence of stomach [part of] (principal)
CPT/HCPCS: 99024

== ENCOUNTER → 2023-09-13 12:06 | Outpatient (BNVA) | payer OTHER, SELFPAY | PROVIDERS: Visit Provider Physician Assistant Surgical | DX: Z90.3 Acquired absence of stomach [part of] (principal) | CPT/HCPCS: 99212 ==

== ENCOUNTER 2023-10-11 12:06 | Outpatient (AMB) | payer SELFPAY ==
--- NOTE | 2023-10-11 12:08 | MHC.OFFVISWM ---
VS Expanded 10/11/23 12:14 BP 117/56 L Blood Pressure Location Rt brachial Blood Pressure Position Sitting Pulse 84 Pulse Source Pulse Oximeter Temp 98.9 F Temperature Source Temporal Artery Scan Pulse Oximetry 97 Oxygen Delivery Method Room Air Height 5 ft 7.5 in Weight 227 lb 12.8 oz BMI 35.1 Body Fat % 32.4 Body Fat Mass 73.8 Fat Free Mass 153.8 Visceral Fat Rating 14.0 Body Water % 48.9 Body Water Mass 111.4 Muscle Mass/Score 146.2 Basal Metabolic Rate/Score 2,108 Intake Visit Reasons: (OV) PO LSG 08/25/23 Allergies No Known Allergies Allergy (Verified 09/13/23 12:18) HPI Comments Details: This?a?33?yo male who is s/p LSG without hiatal hernia repair on?08/25/2023. Presents for 6 week post op visit. Weight today is 227.8 pounds, with a BMI of 35.2. There has been a 75.6 pound weight loss,(initial weight 303.4 pounds) since starting the program on 05/21/2023 reflecting a 24.9 % total body weight loss and a weight loss of 42.5 pounds since surgery (operative weight 270.3 pounds) reflecting a 15.7 % TBWL since surgery. No complaints of nausea, emesis, abdominal pain or reflux. Reports infrequent but normal bowel movements every 5-6 days and uses stool softeners regularly. Present meal plan includes: Celebrate 4 in 1 2 scoops 3-5 pm, 6-8 pm celebrate rebuild 2 scoops 9-11 pm celebrate bar 12-3am drinking 56 oz ? Exercise routine includes: PF, cardio treadmill, 4 days per week [address] [facility] Medical History Fatty liver Sleep apnea treated with continuous positive airway pressure (CPAP) Morbid obesity Surgical History Status post sleeve gastrectomy History of esophagogastroduodenoscopy (EGD) History of surgery on left wrist Family History Paternal Grandmother Breast cancer Social History Household Members: Significant Other Housing: House Are you a primary career portals teacher to a significant other at home: No Do you presently have visiting nurse or other home services: No Alcohol intake: never Patient Tobacco Use Status: Never used Tobacco service: No Current occupational status: employed 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 Physical Exam Vital Signs: Last Vital Signs Temp 98.9 F 10/11/23 12:14 Pulse 84 10/11/23 12:14 BP 117/56 L 10/11/23 12:14 Pulse Ox 97 10/11/23 12:14 Oxygen Delivery Method Room Air 10/11/23 12:14 BMI result Body Mass Index 35.1 Const General: healthy appearing and no acute distress Resp Effort & Inspection: normal respiratory effort Auscultation: clear to auscultation bilaterally Cardio Rate: regular rate Rhythm: regular rhythm GI Auscultation: normal bowel sounds Extrem General: Yes normal to inspection Assessment & Plan Assessment & Plan (1) Obesity (BMI 30-39.9): Code(s): E66.9 - Obesity, unspecified Category: Medical Plan: Making good progress change meal plan slightly: Celebrate 4 in 1 2 scoops 3-5 pm, 6-8 pm celebrate rebuild 1 scoop 9-11 pm celebrate bar 12-3am Continue gym, weights then cardio RTC 1 month
[2023-10-11 12:14] VITALS: BP 117/56; PULSE 84; TEMP 37.2; O2SAT 97; BMI 35.1
== END 2023-10-11 13:00 | disposition home or self-care (01) ==
PROVIDERS: Visit Provider Physician Assistant Surgical
DX: E66.9 Obesity, unspecified (principal)
CPT/HCPCS: 99024

== ENCOUNTER → 2023-10-11 12:06 | Outpatient (BNVA) | payer SELFPAY | PROVIDERS: Visit Provider Physician Assistant Surgical | DX: E66.9 Obesity, unspecified (principal); Z68.35 Body mass index [BMI] 35.0-35.9, adult; Z98.84 Bariatric surgery status | CPT/HCPCS: 99212 ==

== ENCOUNTER 2023-11-08 13:56 | Outpatient (AMB) | payer SELFPAY ==
--- NOTE | 2023-11-08 14:01 | MHC.OFFVISWM ---
VS Expanded 11/08/23 14:08 BP 117/59 L Blood Pressure Location Rt brachial Blood Pressure Position Sitting Pulse 78 Pulse Source Pulse Oximeter Temp 96.4 F L Temperature Source Temporal Artery Scan Pulse Oximetry 96 Oxygen Delivery Method Room Air Height 5 ft 7.5 in Weight 217 lb BMI 33.5 Body Fat % 31.0 Body Fat Mass 67.2 Fat Free Mass 149.6 Visceral Fat Rating 13.0 Body Water % 49.7 Body Water Mass 107.8 Muscle Mass/Score 142.2 Basal Metabolic Rate/Score 2,040 Intake Visit Reasons: (OV) PO LSG 08/25/23 Staff Climate Scientist Required: No Allergies No Known Allergies Allergy (Verified 11/08/23 14:02) Medication List - Last Reconciled 11/08/23 by MERCED Yepez No Known Home Meds HPI Comments Details: This?a?33?yo male who is s/p LSG without hiatal hernia repair on?08/25/2023. Presents for 2 month post op visit. Weight today is 217 pounds, with a BMI of 33.5. There has been a 86.4 pound weight loss,(initial weight 303.4 pounds) since starting the program on 05/21/2023 reflecting a 28.4 % total body weight loss and a weight loss of 53.3 pounds since surgery (operative weight 270.3 pounds) reflecting a 19.7 % TBWL since surgery. No complaints of nausea, emesis, abdominal pain or reflux. Reports infrequent but normal bowel movements every 5-6 days and uses stool softeners regularly. Present meal plan includes: isopure 1 scoop, 3-5, 6-8, 9-11 celebrate bar 12-3am drinking 60 oz ? Exercise routine includes: PF, cardio treadmill, 5 days per week 500 melecio [facility] Medical History Fatty liver Sleep apnea treated with continuous positive airway pressure (CPAP) Morbid obesity Surgical History Status post sleeve gastrectomy History of esophagogastroduodenoscopy (EGD) History of surgery on left wrist Family History Paternal Grandmother Breast cancer Social History Household Members: Significant Other Housing: House Are you a primary healthcare social worker to a significant other at home: No Do you presently have visiting nurse or other home services: No Alcohol intake: never Patient Tobacco Use Status: Never used Tobacco service: No Current occupational status: employed 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 We will change meal plans slightly: isopure 1 scoop, 3-5, 6-8, 1/2 scoop 9-11 celebrate bar 12-3am or 4 forks protein and 4 forks cooked vegetables. Did state that he would like to attempt food. Continue current exercise plan. Continue to text weekly with weights and with any questions or concerns. Return to clinic 1 month.
[2023-11-08 14:08] VITALS: BP 117/59; PULSE 78; TEMP 35.8; O2SAT 96; BMI 33.5
== END 2023-11-08 14:23 | disposition home or self-care (01) ==
PROVIDERS: Visit Provider Physician Assistant Surgical
DX: Z90.3 Acquired absence of stomach [part of] (principal)
CPT/HCPCS: 99024

== ENCOUNTER → 2023-11-08 13:56 | Outpatient (BNVA) | payer SELFPAY | PROVIDERS: Visit Provider Physician Assistant Surgical | DX: Z98.84 Bariatric surgery status (principal); Z90.3 Acquired absence of stomach [part of] | CPT/HCPCS: 99212 ==

== ENCOUNTER 2023-12-13 14:04 | Outpatient (AMB) | payer OTHER, SELFPAY ==
--- NOTE | 2023-12-13 14:06 | MHC.OFFVISWM ---
VS Expanded 12/13/23 14:19 BP 109/55 L Blood Pressure Location Rt brachial Blood Pressure Position Sitting Pulse 82 Pulse Source Pulse Oximeter Temp 98.1 F Temperature Source Temporal Artery Scan Pulse Oximetry 99 Oxygen Delivery Method Room Air Height 5 ft 7.5 in Weight 211 lb 12.8 oz BMI 32.7 Body Fat % 27.8 Body Fat Mass 58.8 Fat Free Mass 152.8 Visceral Fat Rating 11.0 Body Water % 53.2 Body Water Mass 112.6 Muscle Mass/Score 145.2 Basal Metabolic Rate/Score 2,067 Intake Visit Reasons: (OV) PO LSG 08/25/23 Allergies No Known Allergies Allergy (Verified 12/13/23 14:09) HPI Comments Details: This?a?33?yo male who is s/p LSG without hiatal hernia repair on?08/25/2023. Presents for 3 month post op visit. Weight today is 211.8 pounds, with a BMI of 32.7. There has been a 91.6 pound weight loss,(initial weight 303.4 pounds) since starting the program on 05/21/2023 reflecting a 30.1 % total body weight loss and a weight loss of 58.5 pounds since surgery (operative weight 270.3 pounds) reflecting a 21.6 % TBWL since surgery. No complaints of nausea, emesis, abdominal pain or reflux. Reports infrequent but normal bowel movements every 5-6 days and uses stool softeners regularly. No gym over the last 2 weeks Present meal plan includes: isopure 1 scoop, 3-5, 6-8, 1/2 scoop 9-11 4 forks protein and 4 forks cooked vegetables. drinking 60 oz ? Exercise routine includes: PF, cardio treadmill, 5 days per week 500 melecio [facility] Medical History Fatty liver Sleep apnea treated with continuous positive airway pressure (CPAP) Morbid obesity Surgical History Status post sleeve gastrectomy History of esophagogastroduodenoscopy (EGD) History of surgery on left wrist Family History Paternal Grandmother Breast cancer Social History Household Members: Significant Other Housing: House Are you a primary animal caregiver to a significant other at home: No Do you presently have visiting nurse or other home services: No Alcohol intake: never Patient Tobacco Use Status: Never used Tobacco service: No Current occupational status: employed 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 We will change his meal plans slightly. isopure 1 scoop, 3-5, 1/2 scoop 6-8, 9-11 4 forks protein and 4 forks cooked vegetables. We will have him return to the office in approximately 1 month
[2023-12-13 14:19] VITALS: BP 109/55; PULSE 82; TEMP 36.7; O2SAT 99; BMI 32.7
== END 2023-12-13 14:34 | disposition home or self-care (01) ==
LOC: HO.HBS 14:04
PROVIDERS: Visit Provider Physician Assistant Surgical
DX: E66.811 Obesity, class 1 (principal); Z68.32 Body mass index [BMI] 32.0-32.9, adult; Z90.3 Acquired absence of stomach [part of]; Z98.84 Bariatric surgery status
CPT/HCPCS: 99213

== ENCOUNTER → 2023-12-13 14:04 | Outpatient (BNVA) | payer OTHER, SELFPAY | PROVIDERS: Visit Provider Physician Assistant Surgical | DX: E66.9 Obesity, unspecified (principal); Z68.32 Body mass index [BMI] 32.0-32.9, adult | CPT/HCPCS: 99212 ==

== ENCOUNTER 2024-01-24 10:02 | Outpatient (AMB) | payer OTHER, SELFPAY ==
--- NOTE | 2024-01-24 10:05 | MHC.OFFVISWM ---
VS Expanded 01/24/24 10:11 BP 109/59 L Blood Pressure Location Rt brachial Blood Pressure Position Sitting Pulse 84 Pulse Source Pulse Oximeter Temp 96.8 F Temperature Source Temporal Artery Scan Pulse Oximetry 97 Oxygen Delivery Method Room Air Height 5 ft 7.5 in Weight 205 lb 12.8 oz BMI 31.8 Body Fat % 27.9 Body Fat Mass 57.4 Fat Free Mass 148.4 Visceral Fat Rating 11.0 Body Water % 52.5 Body Water Mass 108.0 Muscle Mass/Score 141.0 Basal Metabolic Rate/Score 2,005 Intake Visit Reasons: (OV) PO LSG 08/25/23 Meat Scrubber Required: No Allergies No Known Allergies Allergy (Verified 01/24/24 10:06) Medication List - Last Reconciled 01/24/24 by MERCED Yepez No Known Home Meds HPI Comments Details: This?a?33?yo male who is s/p LSG without hiatal hernia repair on?08/25/2023. Presents for 5 month post op visit. Weight today is 205.8 pounds, with a BMI of 31.8. There has been a 97.6 pound weight loss,(initial weight 303.4 pounds) since starting the program on 05/21/2023 reflecting a 32.1 % total body weight loss and a weight loss of 64.5 pounds since surgery (operative weight 270.3 pounds) reflecting a 23.8 % TBWL since surgery. No complaints of nausea, emesis, abdominal pain or reflux. Reports infrequent but normal bowel movements every 5-6 days and uses stool softeners regularly. No gym over the last 2 weeks Present meal plan includes: 4 forks protein and 4 forks cooked vegetables. isopure 1 scoop, 3-5, 1/2 scoop 6-8, 9-11 drinking 60 oz ? Exercise routine includes: PF, cardio treadmill, speed 3.5, incline 9-15, 4-6 days per week 450-500 melecio [facility] Medical History Fatty liver Sleep apnea treated with continuous positive airway pressure (CPAP) Morbid obesity Surgical History Status post sleeve gastrectomy History of esophagogastroduodenoscopy (EGD) History of surgery on left wrist Family History Paternal Grandmother Breast cancer Social History Household Members: Significant Other Housing: House Are you a primary critical care rn to a significant other at home: No Do you presently have visiting nurse or other home services: No Alcohol intake: never Patient Tobacco Use Status: Never used Tobacco service: No Current occupational status: employed 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 Encouraged to slow down his movements with exercise, increase calories burned at the gym. Plan for follow-up in the office in approximately 1 month. Check six-month postop labs at that time. (2) Constipation: Code(s): K59.00 - Constipation, unspecified Category: Medical Plan: Add senna, 2 at HS. Medications: New sennosides (senna) 17.2 mg (2 x 8.6 mg) PO BEDTIME PRN 90 tabs 0RF constipation sennosides (senna) 17.2 mg (2 x 8.6 mg) PO BEDTIME PRN 90 tabs 0RF constipation
[2024-01-24 10:11] VITALS: BP 109/59; PULSE 84; TEMP 36; O2SAT 97; BMI 31.8
== END 2024-01-24 10:49 | disposition home or self-care (01) ==
PROVIDERS: Visit Provider Physician Assistant Surgical
DX: K59.00 Constipation, unspecified (principal); E66.811 Obesity, class 1; Z68.31 Body mass index [BMI] 31.0-31.9, adult; Z98.84 Bariatric surgery status
CPT/HCPCS: 99213; G2211

== ENCOUNTER → 2024-01-24 10:02 | Outpatient (BNVA) | payer OTHER, SELFPAY | PROVIDERS: Visit Provider Physician Assistant Surgical | DX: K59.00 Constipation, unspecified (principal); Z90.3 Acquired absence of stomach [part of] | CPT/HCPCS: 99212 ==

== ENCOUNTER 2024-03-06 10:11 | Outpatient (AMB) | payer OTHER, SELFPAY ==
--- NOTE | 2024-03-06 10:13 | MHC.OFFVISWM ---
VS Expanded 03/06/24 10:17 BP 115/58 L Blood Pressure Location Rt brachial Blood Pressure Position Sitting Pulse 76 Pulse Source Pulse Oximeter Temp 97.2 F Temperature Source Temporal Artery Scan Pulse Oximetry 97 Oxygen Delivery Method Room Air Height 5 ft 7.5 in Weight 200 lb 3.2 oz BMI 30.9 Body Fat % 26.5 Body Fat Mass 53.2 Fat Free Mass 147.0 Visceral Fat Rating 10.0 Body Water % 53.5 Body Water Mass 107.2 Muscle Mass/Score 139.8 Basal Metabolic Rate/Score 1,980 Intake Visit Reasons: (OV) PO LSG 08/25/23 Allergies No Known Allergies Allergy (Verified 03/06/24 10:14) HPI Comments Details: This?a?33?yo male who is s/p LSG without hiatal hernia repair on?08/25/2023. Presents for 6 month post op visit. Weight today is 200.2 pounds, with a BMI of 30.9. There has been a 103.2 pound weight loss,(initial weight 303.4 pounds) since starting the program on 05/21/2023 reflecting a 34 % total body weight loss and a weight loss of 70.1 pounds since surgery (operative weight 270.3 pounds) reflecting a 25.9 % TBWL since surgery. No complaints of nausea, emesis, abdominal pain or reflux. Reports infrequent but normal bowel movements every 5-6 days and uses stool softeners regularly. celebrate MVI Present meal plan includes: 4 forks protein and 4 forks cooked vegetables. isopure 1 scoop, 3-5, isopure 1/2 scoop, 6-8 1/2 scoop 9-11 drinking 60 oz ? Exercise routine includes: PF, cardio treadmill, speed 3.5, incline 9-15, 4-6 days per week 450-500 melecio Any post op complications: None DONTE: resolved DM: never HTN: never Hyperlipidemia: never GERD:?0-5 scale ??0 = no symptoms ??1 = symptoms noticeable but not bothersome 2 =symptoms bothersome but not daily ? 3 = symptoms bothersome and daily 4 = symptoms affect daily activities 5 = symptoms are incapacitating, unable to do daily activities ? How bad is the heartburn: 0 ? Heartburn while lying down: 0 ? Heartburn when standing up: 0 ? Heartburn after meals: 0 ? Does heartburn change your diet: 0 ? Does heartburn wake you up from sleep: 0 ? Do you have difficulty swallowin ? Do you have pain with swallowin ? If you take medicine for your reflux, does this affect your daily life: 0 Satisfaction with present condition - satisfied or not satisfied: satisfied COUNT INCLUDES [facility] Medical History Fatty liver Sleep apnea treated with continuous positive airway pressure (CPAP) Morbid obesity Surgical History Status post sleeve gastrectomy History of esophagogastroduodenoscopy (EGD) History of surgery on left wrist Family History Paternal Grandmother Breast cancer Mother No problems noted. Father Family history unknown Daughter No problems noted. 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 Patient wishes to incorporate more food: 4 forks protein and 4 forks cooked vegetables. isopure 1 scoop, 3-5, 4 forks protein and 4 forks cooked vegetables. 1/2 scoop 9-11 Return to the gym as he has just returned from visiting his friends and family in [place]. Arrange for follow-up in 3 months Orders: Orders Insulin Today E50.9 - Vitamin A deficiency, unspecified, E53.8 - Deficiency of other specified B group vitamins, E55.9 - Vitamin D deficiency, unspecified, K76.0 - Fatty (change of) liver, not elsewhere classified, Z90.3 - Acquired absence of stomach [part of] Hemoglobin A1c Today E50.9 - Vitamin A deficiency, unspecified, E53.8 - Deficiency of other specified B group vitamins, E55.9 - Vitamin D deficiency, unspecified, K76.0 - Fatty (change of) liver, not elsewhere classified, Z90.3 - Acquired absence of stomach [part of] Complete Blood Count Auto Diff Today E50.9 - Vitamin A deficiency, unspecified, E53.8 - Deficiency of other specified B group vitamins, E55.9 - Vitamin D deficiency, unspecified, K76.0 - Fatty (change of) liver, not elsewhere classified, Z90.3 - Acquired absence of stomach [part of] Lipid Panel Today E50.9 - Vitamin A deficiency, unspecified, E53.8 - Deficiency of other specified B group vitamins, E55.9 - Vitamin D deficiency, unspecified, K76.0 - Fatty (change of) liver, not elsewhere classified, Z90.3 - Acquired absence of stomach [part of] IRON PROFILE Today E50.9 - Vitamin A deficiency, unspecified, E53.8 - Deficiency of other specified B group vitamins, E55.9 - Vitamin D deficiency, unspecified, K76.0 - Fatty (change of) liver, not elsewhere classified, Z90.3 - Acquired absence of stomach [part of] Vitamin B12 and Folate Today E50.9 - Vitamin A deficiency, unspecified, E53.8 - Deficiency of other specified B group vitamins, E55.9 - Vitamin D deficiency, unspecified, K76.0 - Fatty (change of) liver, not elsewhere classified, Z90.3 - Acquired absence of stomach [part of] Zinc Today E50.9 - Vitamin A deficiency, unspecified, E53.8 - Deficiency of other specified B group vitamins, E55.9 - Vitamin D deficiency, unspecified, K76.0 - Fatty (change of) liver, not elsewhere classified, Z90.3 - Acquired absence of stomach [part of] C Reactive Protein Today E50.9 - Vitamin A deficiency, unspecified, E53.8 - Deficiency of other specified B group vitamins, E55.9 - Vitamin D deficiency, unspecified, K76.0 - Fatty (change of) liver, not elsewhere classified, Z90.3 - Acquired absence of stomach [part of] Ferritin Today E50.9 - Vitamin A deficiency, unspecified, E53.8 - Deficiency of other specified B group vitamins, E55.9 - Vitamin D deficiency, unspecified, K76.0 - Fatty (change of) liver, not elsewhere classified, Z90.3 - Acquired absence of stomach [part of] Vitamin D 25-OH Total Today E50.9 - Vitamin A deficiency, unspecified, E53.8 - Deficiency of other specified B group vitamins, E55.9 - Vitamin D deficiency, unspecified, K76.0 - Fatty (change of) liver, not elsewhere classified, Z90.3 - Acquired absence of stomach [part of] Comprehensive Met. Panel Today E50.9 - Vitamin A deficiency, unspecified, E53.8 - Deficiency of other specified B group vitamins, E55.9 - Vitamin D deficiency, unspecified, K76.0 - Fatty (change of) liver, not elsewhere classified, Z90.3 - Acquired absence of stomach [part of] Vitamin B1 Today E50.9 - Vitamin A deficiency, unspecified, E53.8 - Deficiency of other specified B group vitamins, E55.9 - Vitamin D deficiency, unspecified, K76.0 - Fatty (change of) liver, not elsewhere classified, Z90.3 - Acquired absence of stomach [part of] Vitamin A Today E50.9 - Vitamin A deficiency, unspecified, E53.8 - Deficiency of other specified B group vitamins, E55.9 - Vitamin D deficiency, unspecified, K76.0 - Fatty (change of) liver, not elsewhere classified, Z90.3 - Acquired absence of stomach [part of] TSH reflex Free T4 Today E50.9 - Vitamin A deficiency, unspecified, E53.8 - Deficiency of other specified B group vitamins, E55.9 - Vitamin D deficiency, unspecified, K76.0 - Fatty (change of) liver, not elsewhere classified, Z90.3 - Acquired absence of stomach [part of]
[2024-03-06 10:17] VITALS: BP 115/58; PULSE 76; TEMP 36.2; O2SAT 97; BMI 30.9
== END 2024-03-06 10:36 | disposition home or self-care (01) ==
LOC: HO.HBS 10:11
PROVIDERS: Visit Provider Physician Assistant Surgical
DX: E66.811 Obesity, class 1 (principal); Z68.30 Body mass index [BMI] 30.0-30.9, adult; Z90.3 Acquired absence of stomach [part of]; Z98.84 Bariatric surgery status
CPT/HCPCS: 99213; G2211

== ENCOUNTER 2024-03-06 10:11 | Outpatient (REF) | payer OTHER, SELFPAY ==
[2024-03-06 10:50] LABS: MANUAL DIFF FLAG NO
[2024-03-06 11:31] LABS: Basophils Percent Auto 0.7 % (0-2); Eosinophils Absolute Auto 0.3 X10*3/uL (0.0-0.4); Eosinophils Percent Auto 5.2 % (0-4); Hematocrit 42.8 % (42.0-52.0); Hemoglobin 15.4 g/dl (14.0-18.0); Lymphocytes Absolute Auto 1.9 X10*3/uL (1.2-4.9); Lymphocytes Percent Auto 34.2 % (20-40); Mean Corpuscular Hemoglobin 30.8 pg (27.0-33.0); Mean Corpuscular Volume 85.6 fL (80.0-98.0); Monocytes Absolute Auto 0.3 X10*3/uL (0.1-1.2); Monocytes Percent Auto 6.1 % (2-11); Neutrophils Percent Auto 53.8 % (45-73); Platelet Count 233 X10*3/uL (160-400); Red Cell Distribution Width 12.3 % (11.0-16.0); White Blood Count 5.5 X10*3/uL (4.8-10.8)
[2024-03-06 11:41] LABS: Estimated Average Glucose 85 mg/dL; Hemoglobin A1C 107.5344 umol/L; Hemoglobin A1c % 4.6 % (<6.0); Total Hemoglobin (HGBA1C) 3959.7138 umol/L
[2024-03-06 12:15] LABS: Alanine Aminotransferase 27 U/L (0-40); Albumin Level 4.4 g/dL (3.5-5.0); Alkaline Phosphatase 67 U/L (39-117); Anion Gap 12 (12-20); Aspartate Amino Transferase 21 U/L (5-37); Bilirubin Total 1.4 mg/dL (0.0-1.0); Blood Urea Nitrogen 15 mg/dL (9-16); C Reactive Protein < 0.10 mg/dL (< or = 0.50); Carbon Dioxide 28 mmol/L (22-29); Chloride 107 mmol/L (96-108); Cholesterol 175 mg/dL (<200); Estimated Glomerular Filt Rate > 60; Glucose Random 78 mg/dL (60-115); HDL Cholesterol 40 mg/dL (>40); Iron 148 mcg/dL (45-160); LDL Cholesterol Calculated 120 mg/dL (<100); Percent Iron Saturation 58 % (15-50); Potassium 3.7 mmol/L (3.3-5.1); Sodium 143 mmol/L (135-145); Total Iron Binding Capacity 256 mcg/dL (228-428); Total Protein 7.4 g/dL (6.5-8.0); Triglycerides 77 mg/dL (<150); Unsaturated Iron Binding 108 ug/dL
[2024-03-06 12:35] LABS: Ferritin 375 ng/mL (20-250); Insulin 6 uU/mL (2-29); TSH reflex Free T4 1.09 uIU/mL (0.32-4.0); Vitamin D 25-OH Total 40.9 ng/mL (>30)
[2024-03-06 12:40] LABS: Folate 15.2 ng/mL (> or = 4.0); Vitamin B12 1005 pg/mL (200-900)
[2024-03-08 20:39] LABS: Vitamin A 33 mcg/dL (38-98)
[2024-03-08 23:13] LABS: Zinc 80 mcg/dL (60-130)
[2024-03-10 20:03] LABS: Vitamin B1 13 nmol/L (8-30)
== END 2024-03-06 10:12 | disposition home or self-care (01) ==
LOC: HO.LAB 10:11
PROVIDERS: Visit Provider Physician Assistant Surgical
DX: E50.9 Vitamin A deficiency, unspecified (principal); E55.9 Vitamin D deficiency, unspecified; E53.8 Deficiency of other specified B group vitamins; K76.0 Fatty (change of) liver, not elsewhere classified; Z90.3 Acquired absence of stomach [part of]
CPT/HCPCS: 36415; 80053; 80061; 82306; 82607; 82728; 82746; 83036; 83525; 83540; 84425; 84443; 84590; 84630; 85025; 86140; 99212

== ENCOUNTER 2024-05-22 10:11 | Outpatient (AMB) | payer OTHER, SELFPAY ==
--- NOTE | 2024-05-22 10:14 | A.OFFVIS_ITS ---
VS Expanded 05/22/24 10:16 BP 101/57 L Blood Pressure Location Rt brachial Blood Pressure Position Sitting Pulse 74 Pulse Source Pulse Oximeter Temp 97.4 F Temperature Source Temporal Artery Scan Pulse Oximetry 100 Oxygen Delivery Method Room Air Height 5 ft 7.5 in Weight 195 lb 2 oz BMI 30.1 Body Fat % 24.6 Body Fat Mass 48.0 Fat Free Mass 147.0 Visceral Fat Rating 9.0 Body Water % 55.1 Body Water Mass 107.6 Muscle Mass/Score 139.8 Basal Metabolic Rate/Score 1,972 Intake Visit Reasons: (OV) PO LSG 08/25/23 Circular Ripsaw Operator Required: No Allergies No Known Allergies Allergy (Verified 05/22/24 10:15) Medication List - Last Reconciled 05/22/24 by MERCED Yepez vitamin A palmitate 3,000 mcg PO DAILY HPI Comments Details: This?a?33?yo male who is s/p LSG without hiatal hernia repair on?08/25/2023. Presents for 9 month post op visit. Weight today is 195.2 pounds, with a BMI of 30.1. There has been a 108.2 pound weight loss,(initial weight 303.4 pounds) since starting the program on 05/21/2023 reflecting a 35.6 % total body weight loss and a weight loss of 75.1 pounds since surgery (operative weight 270.3 pounds) reflecting a 27.7 % TBWL since surgery. No complaints of nausea, emesis, abdominal pain or reflux. Reports infrequent but normal bowel movements every 5-6 days and uses stool softeners regularly. celebrate MVI Present meal plan includes: 4 forks protein and 4 forks cooked vegetables. isopure 1 scoop, 3-5, 4 forks protein and 4 forks cooked vegetables. 1/2 scoop 9-11 drinking 60 oz ? Exercise routine includes: PF, cardio treadmill, speed 3.5, incline 9-15, 5-6 days per week 400 melecio and weight lifting PFSH Medical History Fatty liver Sleep apnea treated with continuous positive airway pressure (CPAP) Morbid obesity Surgical History Status post sleeve gastrectomy History of esophagogastroduodenoscopy (EGD) History of surgery on left wrist Family History Paternal Grandmother Breast cancer Mother No problems noted. Father Family history unknown Daughter No problems noted. 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 Recommend increasing speed of treadmill. Continue follow current meal plan. We will have him return to the office in August for his 1 year postop appointment.
[2024-05-22 10:16] VITALS: BP 101/57; PULSE 74; TEMP 36.3; O2SAT 100; BMI 30.1
--- OUTSIDE RECORDS SUMMARY | 2024-05-22 11:53 | XMS_ITS | Patient Health Record ---
Author Organization [employer] Address [address] [place] [address] Care Team Providers Care Electrolysist Name Role Phone Hasmukh Cardenas Unavailable [phone] Allergies No Known Allergies Reason For Referral No Information Medications Medication SIG (Take, Route, Frequency, Duration) Notes Start Date End Date Status Ibuprofen 800 MG 1 tablet Orally Thre e times a day for 10 days 08/02/2019 Not-Taking Sertraline HCl 50 MG 1 tablet Orally Onc e a day for 30 day(s) 11/20/2020 Active Baclofen 10 MG TAKE 1 TABLET BY HAMILTON TH TWICE A DAY NEEDED FOR 30 DAYS for 30 Active Immunizations Vaccine Route Administration Date Status Comme nts COVID-19 Vaccine Pfizer IM Intramuscular 11/20/2020 Admini stered COVID-19 Vaccine Pfizer IM Intramuscular 12/11/2020 Admini stered Social History Tobacco Use: Social History Observation Description Date Details (start date - stop date) Never Smoker NA - NA Tobacco Use/Smoking Question Answer Notes Are you a nonsmoker Alcohol Screen (Audit-C) Question Answer Notes Did you have a drink containing alcohol in the p ast year? No Points 0 Interpretation Negative Tobacco use other than smoking: Question Answer Notes Are you an other tobacco user? 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 Problem Vitamin D deficiency (89272107) Vitamin D deficiency (268.9) Active Confirmed (JORDEN) Active Problem Vitamin D deficiency (67874483) Vitamin D deficiency (E55.9) Active Confirmed (JORDEN) Active Problem Liver enzymes abnormal (876748220) Liver enzymes abnormal (790.5) Active Confirmed (JORDEN) Active Problem Liver enzymes abnormal (729425367) Liver enzymes abnormal (R94.5) Active Confirmed (JORDEN) Active Problem Levoscoliosis (899282797508735 ) Levoscoliosis (M41.80) Active Confirmed (JORDEN) Active Problem Nasal obstruction (551866565) Nasal obstruction (J34.89) Active Confirmed (JORDEN) Active Problem Nasal obstruction (420176249) Nasal obstruction (478.19) Active Confirmed (JORDEN) Active Plan Of Treatment Pending Test Test Name Order Date Hospital Discharge Visit 08/02/2019 EKG 11/20/2020 Future Test Test Name Order Date CBC With Differential/Platelet Urinalysis, Complete 11/27/2020 CMP {Comprehensive Metabolic Panel} (14) 11/27/2020 Vitamin D, 1,25 + 25-Hydroxy 11/27/2020 Insurance Providers Payer Name Payer Address Payer Phone Subscriber Number Group Number Insured Name Patient Relationship to Insured Coverage Start Date Coverage End Date [employer] [address] [address] [place] [id number] [phone] [id number] Tripp Goetz Self - patient is the insured Medical (General) History Medical History History ICD Code depression Surgical History Surgery Date(Month/Year) left arm surgery Hospitalization History Reason Date(Month/Year) injured right arm 06/2019
--- OUTSIDE RECORDS SUMMARY | 2024-05-22 11:53 | XMS_ITS | Patient Health Record ---
Author Organization [facility] Address [address] [place] [address] Support Name Relationship Address Phone Tripp Goetz Guarantor Unknown [phone] Reason For Referral No Information Plan Of Treatment No Information Insurance Providers Payer Name Payer Address Payer Phone Subscriber Number Group Number Insured Name Patient Relationship to Insured Coverage Start Date Coverage End Date [employer] id [address] [address] [place] [address] [id number] Tripp Goetz Self - patient is the insured
== END 2024-05-22 10:52 | disposition home or self-care (01) ==
PROVIDERS: Visit Provider Physician Assistant Surgical
DX: E66.811 Obesity, class 1 (principal); Z68.30 Body mass index [BMI] 30.0-30.9, adult; Z90.3 Acquired absence of stomach [part of]; Z98.84 Bariatric surgery status
CPT/HCPCS: 99213

== ENCOUNTER → 2024-05-22 10:11 | Outpatient (BNVA) | payer OTHER, SELFPAY | PROVIDERS: Visit Provider Physician Assistant Surgical | DX: Z98.84 Bariatric surgery status (principal) | CPT/HCPCS: 99212 ==

== ENCOUNTER 2024-08-21 09:55 | Outpatient (REF) | payer OTHER, SELFPAY ==
[2024-08-21 11:03] LABS: MANUAL DIFF FLAG NO
[2024-08-21 11:54] LABS: Hematocrit 38.8 % (42.0-52.0); Hemoglobin 13.9 g/dl (14.0-18.0); Imm Gran Abs Auto 0.01 X10*3/uL (0.00-0.03); Imm Gran Pct Auto 0.2 % (0.0-0.4); Lymphocytes Absolute Auto 1.8 X10*3/uL (1.2-4.9); Mean Corpuscular HGB Conc 35.8 g/dl (31.0-36.0); Mean Corpuscular Hemoglobin 30.5 pg (27.0-33.0); Mean Corpuscular Volume 85.3 fL (80.0-98.0); NRBC Abs Auto 0.000 X10*3/uL (0.0-0.012); NRBC Pct Auto 0.0 /100WBC (0.0-0.2); Platelet Count 199 X10*3/uL (160-400); Red Blood Count 4.55 X10*6/uL (4.60-5.80); White Blood Count 4.7 X10*3/uL (4.8-10.8)
[2024-08-21 12:51] LABS: Hemoglobin A1C 103.3162 umol/L; Total Hemoglobin (HGBA1C) 3747.2576 umol/L
[2024-08-21 13:11] LABS: Folate 9.4 ng/mL (> or = 4.0); Vitamin B12 614 pg/mL (200-900)
[2024-08-21 14:12] LABS: Ferritin 250 ng/mL (20-250)
[2024-08-21 14:39] LABS: Anion Gap 12 (12-20)
[2024-08-21 14:44] LABS: Alanine Aminotransferase 32 U/L (0-40); Albumin Level 4.3 g/dL (3.5-5.0); Alkaline Phosphatase 64 U/L (39-117); Aspartate Amino Transferase 36 U/L (5-37); Blood Urea Nitrogen 16 mg/dL (9-16); Calcium 8.9 mg/dL (8.4-10.2); Carbon Dioxide 27 mmol/L (22-29); Chloride 108 mmol/L (96-108); Cholesterol 148 mg/dL (<200); Estimated Glomerular Filt Rate > 60; HDL Cholesterol 45 mg/dL (>40); Iron 91 mcg/dL (45-160); Percent Iron Saturation 39 % (15-50); Potassium 3.5 mmol/L (3.3-5.1); Sodium 143 mmol/L (135-145); Total Iron Binding Capacity 231 mcg/dL (228-428); Total Protein 6.6 g/dL (6.5-8.0); Triglycerides 63 mg/dL (<150); Unsaturated Iron Binding 140 ug/dL
== END 2024-08-21 09:56 | disposition home or self-care (01) ==
LOC: HO.LAB 09:55
PROVIDERS: Visit Provider Physician Assistant Surgical
DX: Z90.3 Acquired absence of stomach [part of] (principal); K76.0 Fatty (change of) liver, not elsewhere classified; E50.9 Vitamin A deficiency, unspecified; E53.8 Deficiency of other specified B group vitamins; E55.9 Vitamin D deficiency, unspecified
CPT/HCPCS: 36415; 80053; 80061; 82306; 82607; 82728; 82746; 83036; 83525; 83540; 84425; 84443; 84590; 84630; 85025; 86140; 99212

== ENCOUNTER 2024-08-21 09:55 | Outpatient (AMB) | payer OTHER, SELFPAY ==
[2024-08-21 10:06] VITALS: BP 127/56; PULSE 67; TEMP 36; O2SAT 100; BMI 30.4
--- NOTE | 2024-08-21 10:10 | MHC.OFFVISWM ---
VS Expanded 08/21/24 10:06 BP 127/56 L Blood Pressure Location Rt brachial Blood Pressure Position Sitting Pulse 67 Pulse Source Pulse Oximeter Temp 96.8 F Temperature Source Temporal Artery Scan Pulse Oximetry 100 Oxygen Delivery Method Room Air Height 5 ft 7.5 in Weight 196 lb 12.8 oz BMI 30.4 Body Fat % 24.5 Body Fat Mass 48.2 Fat Free Mass 148.4 Visceral Fat Rating 9.0 Body Water % 55.3 Body Water Mass 108.6 Muscle Mass/Score 141.0 Basal Metabolic Rate/Score 1,988 Intake Visit Reasons: (OV) PO LSG 08/25/23 Rn Women Services Required: No Allergies No Known Allergies Allergy (Verified 05/22/24 10:15) Medication List - Last Reconciled 08/21/24 by MERCED Yepez vitamin A palmitate 3,000 mcg PO DAILY HPI Comments Details: This?a?33?yo male who is s/p LSG without hiatal hernia repair on?08/25/2023. Presents for 1 year post op visit. Weight today is 196.8 pounds, with a BMI of 30.4. There has been a 106.6 pound weight loss,(initial weight 303.4 pounds) since starting the program on 05/21/2023 reflecting a 35.1 % total body weight loss and a weight loss of 73.5 pounds since surgery (operative weight 270.3 pounds) reflecting a 27.1 % TBWL since surgery. No complaints of nausea, emesis, abdominal pain or reflux. Reports infrequent but normal bowel movements every 5-6 days and uses stool softeners regularly. celebrate MVI States he would like to lose a little more weight and gain muscle. States he has been eating 6-7 forks of protein and 4 forks veg. He is no longer using isopure, he is using animal protein shake 25 gm per scoop. He has been doing 1 meal, one fit crunch bar, and 2 shakes with one scoop each. Present meal plan includes: 4 forks protein and 4 forks cooked vegetables. isopure 1 scoop, 3-5, 4 forks protein and 4 forks cooked vegetables. 1/2 scoop 9-11 drinking 60 oz ? Exercise routine includes: PF, cardio treadmill, speed 3.5, incline 9-15, 3 days per week 400 melecio and weight lifting first Any post op complications: none DONTE: resolved DM: never HTN: never Hyperlipidemia: never GERD:?0-5 scale ??0 = no symptoms ??1 = symptoms noticeable but not bothersome 2 =symptoms bothersome but not daily ? 3 = symptoms bothersome and daily 4 = symptoms affect daily activities 5 = symptoms are incapacitating, unable to do daily activities ? How bad is the heartburn: 0 ? Heartburn while lying down: 0 ? Heartburn when standing up: 0 ? Heartburn after meals: 0 ? Does heartburn change your diet: 0 ? Does heartburn wake you up from sleep: 0 ? Do you have difficulty swallowin ? Do you have pain with swallowin ? If you take medicine for your reflux, does this affect your daily life: 0 Satisfaction with present condition - satisfied or not satisfied: satisfied [facility] Medical History Fatty liver Sleep apnea treated with continuous positive airway pressure (CPAP) Morbid obesity Surgical History Status post sleeve gastrectomy History of esophagogastroduodenoscopy (EGD) History of surgery on left wrist Family History Paternal Grandmother Breast cancer Mother No problems noted. Father Family history unknown Daughter No problems noted. 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 Physical Exam Vital Signs: Last Vital Signs Temp 96.8 F 08/21/24 10:06 Pulse 67 08/21/24 10:06 BP 127/56 L 08/21/24 10:06 Pulse Ox 100 08/21/24 10:06 Oxygen Delivery Method Room Air 08/21/24 10:06 BMI result Body Mass Index 30.4 Const General: cooperative and no acute distress Orientation/consciousness: patient oriented x3 Resp Effort & Inspection: normal respiratory effort Auscultation: clear to auscultation bilaterally Cardio Rate: regular rate Rhythm: regular rhythm GI Inspection: Yes normal to inspection and Yes incision (well healed) Palpation (GI): Soft to palpation and no masses Neuro General: patient oriented x3 Assessment & Plan Assessment & Plan (1) Status post sleeve gastrectomy: Code(s): Z90.3 - Acquired absence of stomach [part of] Category: Surgical Plan: Patient states he wants to continue to use animal protein powder. We will adjust his meal plan to help him lose some additional weight: 6 forks protein and 4 forks cooked vegetables. Animal protein powder (25 g per scoop) 1/2 scoop, 3-5, Fit crunch protein bar. /2 scoop 9-11 Encouraged to return to the gym, 5 days per week. Additionally very his exercise for cardio to include not only treadmill, but add stationary bike, rowing machine, StairMaster, elliptical machine. He does wish to increase his muscle mass which she will continue to do weight training then cardio. Check 1 year postop follow-up labs. Return to clinic 3 months. Orders: Orders Insulin Today E50.9 - Vitamin A deficiency, unspecified, E53.8 - Deficiency of other specified B group vitamins, E55.9 - Vitamin D deficiency, unspecified, K76.0 - Fatty (change of) liver, not elsewhere classified, Z90.3 - Acquired absence of stomach [part of] Complete Blood Count Auto Diff Today E50.9 - Vitamin A deficiency, unspecified, E53.8 - Deficiency of other specified B group vitamins, E55.9 - Vitamin D deficiency, unspecified, K76.0 - Fatty (change of) liver, not elsewhere classified, Z90.3 - Acquired absence of stomach [part of] Vitamin B1 Today E50.9 - Vitamin A deficiency, unspecified, E53.8 - Deficiency of other specified B group vitamins, E55.9 - Vitamin D deficiency, unspecified, K76.0 - Fatty (change of) liver, not elsewhere classified, Z90.3 - Acquired absence of stomach [part of] TSH reflex Free T4 Today E50.9 - Vitamin A deficiency, unspecified, E53.8 - Deficiency of other specified B group vitamins, E55.9 - Vitamin D deficiency, unspecified, K76.0 - Fatty (change of) liver, not elsewhere classified, Z90.3 - Acquired absence of stomach [part of] Ferritin Today E50.9 - Vitamin A deficiency, unspecified, E53.8 - Deficiency of other specified B group vitamins, E55.9 - Vitamin D deficiency, unspecified, K76.0 - Fatty (change of) liver, not elsewhere classified, Z90.3 - Acquired absence of stomach [part of] Vitamin D 25-OH Total Today E50.9 - Vitamin A deficiency, unspecified, E53.8 - Deficiency of other specified B group vitamins, E55.9 - Vitamin D deficiency, unspecified, K76.0 - Fatty (change of) liver, not elsewhere classified, Z90.3 - Acquired absence of stomach [part of] Hemoglobin A1c Today E50.9 - Vitamin A deficiency, unspecified, E53.8 - Deficiency of other specified B group vitamins, E55.9 - Vitamin D deficiency, unspecified, K76.0 - Fatty (change of) liver, not elsewhere classified, Z90.3 - Acquired absence of stomach [part of] Lipid Panel Today E50.9 - Vitamin A deficiency, unspecified, E53.8 - Deficiency of other specified B group vitamins, E55.9 - Vitamin D deficiency, unspecified, K76.0 - Fatty (change of) liver, not elsewhere classified, Z90.3 - Acquired absence of stomach [part of] IRON PROFILE Today E50.9 - Vitamin A deficiency, unspecified, E53.8 - Deficiency of other specified B group vitamins, E55.9 - Vitamin D deficiency, unspecified, K76.0 - Fatty (change of) liver, not elsewhere classified, Z90.3 - Acquired absence of stomach [part of] Comprehensive Met. Panel Today E50.9 - Vitamin A deficiency, unspecified, E53.8 - Deficiency of other specified B group vitamins, E55.9 - Vitamin D deficiency, unspecified, K76.0 - Fatty (change of) liver, not elsewhere classified, Z90.3 - Acquired absence of stomach [part of] Vitamin B12 and Folate Today E50.9 - Vitamin A deficiency, unspecified, E53.8 - Deficiency of other specified B group vitamins, E55.9 - Vitamin D deficiency, unspecified, K76.0 - Fatty (change of) liver, not elsewhere classified, Z90.3 - Acquired absence of stomach [part of] Zinc Today E50.9 - Vitamin A deficiency, unspecified, E53.8 - Deficiency of other specified B group vitamins, E55.9 - Vitamin D deficiency, unspecified, K76.0 - Fatty (change of) liver, not elsewhere classified, Z90.3 - Acquired absence of stomach [part of] C Reactive Protein Today E50.9 - Vitamin A deficiency, unspecified, E53.8 - Deficiency of other specified B group vitamins, E55.9 - Vitamin D deficiency, unspecified, K76.0 - Fatty (change of) liver, not elsewhere classified, Z90.3 - Acquired absence of stomach [part of] Vitamin A Today E50.9 - Vitamin A deficiency, unspecified, E53.8 - Deficiency of other specified B group vitamins, E55.9 - Vitamin D deficiency, unspecified, K76.0 - Fatty (change of) liver, not elsewhere classified, Z90.3 - Acquired absence of stomach [part of]
--- OUTSIDE RECORDS SUMMARY | 2024-08-21 10:30 | XMS_ITS | Patient Health Record ---
Author Organization [facility] Address [address] [facility] [address] [place] [address] Care Team Providers Care Clinical Documentation Specialist Name Role Phone Hasmukh Cardenas Unavailable [phone] Allergies No Known Allergies Reason For Referral No Information Medications Medication SIG (Take, Route, Frequency, Duration) Notes Start Date End Date Status Ibuprofen 800 MG 1 tablet Orally Thre e times a day; Duration: 10 days 08/02/2019 Not-Dhruv ing Sertraline HCl 50 MG 1 tablet Orally Onc e a day; Duration: 30 day(s) 11/20/2020 Active Baclofen 10 MG TAKE 1 TABLET BY HAMILTON TWICE A DAY NEEDED FOR 30 DAYS; Duration: 30 Active Immunizations Vaccine Route Administration Date [...] Status Risk Notes Problem Vitamin D deficiency (33372286) Vitamin D deficiency, unspecified (E55.9) Active confirmed Problem Chronic depression (008850266) Chronic depression [phone] 018 Active Confirmed (JORDEN) Active Problem Chronic depression (904475942) Chronic depression (F34.1) 04/18/2 018 Active Confirmed (JORDEN) Active Problem 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 Problem Vitamin D deficiency (47353515) Vitamin D deficiency (268.9) Active Confirmed (JORDEN) Active Problem Vitamin D deficiency (55142121) Vitamin D deficiency (E55.9) Active Confirmed (JORDEN) Active Problem Liver enzymes abnormal (161177703) Liver enzymes abnormal (790.5) Active Confirmed (JORDEN) Active Problem Liver enzymes abnormal (295525018) Liver enzymes abnormal (R94.5) Active Confirmed (JORDEN) Active Problem Levoscoliosis (731845878833396 ) Levoscoliosis (M41.80) Active Confirmed (JORDEN) Active Problem Nasal obstruction (653511854) Nasal obstruction (J34.89) Active Confirmed (JORDEN) Active Problem Nasal obstruction (955358202) Nasal obstruction (478.19) Active Confirmed (JORDEN) Active [...] Insured Coverage Start Date Coverage End Date [facility] MEDICAID [address] [address] [place] [address] [id number] Tripp Goetz Self - patient is the insured Medical (General) History Medical History History ICD Code depression Surgical History Surgery Date(Month/Year) left arm surgery Hospitalization History Reason Date(Month/Year) injured right arm 06/2019
--- OUTSIDE RECORDS SUMMARY | 2024-08-21 10:31 | XMS_ITS | Patient Health Record ---
Author Organization [facility] Address [address] [place] [address] Support Name Relationship Address Phone Tripp Goetz Guarantor Unknown [phone] Reason For Referral No Information Plan Of Treatment No Information Insurance Providers Payer Name Payer Address Payer Phone Subscriber Number Group Number Insured Name Patient Relationship to Insured Coverage Start Date Coverage End Date [employer] id [address] [address] [place] [address] [id number] Tripp Goetz Self - patient is the insured
== END 2024-08-21 10:34 | disposition home or self-care (01) ==
PROVIDERS: Visit Provider Physician Assistant Surgical
DX: E66.9 Obesity, unspecified (principal); Z68.30 Body mass index [BMI] 30.0-30.9, adult; Z90.3 Acquired absence of stomach [part of]; Z98.84 Bariatric surgery status
CPT/HCPCS: 99214; G2211